=== PATIENT | male | born 1950 | race Caucasian/White ===

== ENCOUNTER → 2017-03-01 | Outpatient (CLI) | payer MEDICARE ==
[2017-03-01 12:38] LABS: ALT 35 U/L (21-72); AST 23 U/L (17-59); Alkaline Phosphatase 97 U/L (38-126); Anion Gap 8 mmol/L; Blood Urea Nitrogen 14 mg/dL (9-20); Calcium 8.9 mg/dL (8.4-10.2); Carbon Dioxide 28 mmol/L (22-30); Chloride 102 mmol/L (98-107); Cholesterol 291 mg/dL (<200); Glucose 92 mg/dL (74-99); HDL Cholesterol 62 mg/dL (40-60); Non-African American GFR(MDRD) >60 (>60 ml/min/1.73 sqM); Potassium 4.4 mmol/L (3.5-5.1); Sodium 138 mmol/L (137-145); Total Bilirubin 0.4 mg/dL (0.2-1.3)
[2017-03-01 12:43] LABS: CH 32.1; CHCM 32.6; HCT 46.2 % (39.0-53.0); HDW 2.36; HGB 15.2 gm/dL (13.0-17.5); MCH 32.4 pg (25.0-35.0); MCHC 32.8 g/dL (31.0-37.0); MCV 98.8 fL (80.0-100.0); Mean Platelet Volume 7.8; RBC 4.68 m/uL (4.30-5.90); RDW 14.6 % (11.5-15.5); WBC 6.7 k/uL (3.8-10.6)
== END | disposition home or self-care (01) ==
LOC: LABWHC1 11:49
PROVIDERS: ATTEND Psychiatry & Neurology Psychiatry
DX: E78.5 Hyperlipidemia, unspecified (principal); E03.9 Hypothyroidism, unspecified
CPT/HCPCS: 36415; 80053; 80061; 84439; 84443; 85027

== ENCOUNTER → 2017-04-27 | Outpatient (CLI) | payer MEDICARE ==
[2017-04-27 18:17] LABS: Non-African American GFR(MDRD) >60 (>60 ml/min/1.73 sqM)
--- NOTE | 2017-04-27 23:19 | MR ---
EXAMINATION TYPE: MR brain wo/w con DATE OF EXAM: 04/27/2017 COMPARISON: 03/28/2015 HISTORY: Abnormal gait TECHNIQUE: Multiplanar, multisequence images of the brain and brainstem is performed without and with IV contras t, utilizing 10 mL intravenous Gadavist . FINDINGS: There is mild cerebral atrophy appropriate for age. There is no mass effect nor midline renetta ft. There is no sign of intracranial hemorrhage. Brainstem is intact. There is mild patchy increased signal in the periventricular white matter and more noticeable around the frontal horns and occipital horns of the lateral ventricles. Total number of foci is approximatel y 20. These measure up to 8 mm. The sella turcica is normal. Cerebellum appears normal. Contrast imag es show no pathologic enhancement. IMPRESSION: There are periventricular white matter signal changes that could relate to demyelinating disease or chronic small vessel ischemia. There is slight progression of the disease compared to last exam. There is no evidence of cortical infarct.
== END | disposition home or self-care (01) ==
LOC: RADMRIMAIN 17:36
PROVIDERS: ATTEND Psychiatry & Neurology Psychiatry
DX: D43.2 Neoplasm of uncertain behavior of brain, unspecified (principal); R26.9 Unspecified abnormalities of gait and mobility
CPT/HCPCS: 82565; 70553; 36415; A9581

== ENCOUNTER → 2017-04-27 | Outpatient (CLI) | payer MEDICARE ==
[2017-04-27 18:17] LABS: ALT 38 U/L (21-72); AST 27 U/L (17-59); Cholesterol 290 mg/dL (<200); HDL Cholesterol 60 mg/dL (40-60)
== END | disposition home or self-care (01) ==
LOC: LAB 17:42
PROVIDERS: ATTEND Nurse Practitioner Adult Health
DX: E78.2 Mixed hyperlipidemia (principal)
CPT/HCPCS: 80061; 84450; 84460

== ENCOUNTER → 2018-02-06 | Outpatient (CLI) | payer MEDICARE ==
[2018-02-06 11:06] LABS: HCT 44.4 % (39.0-53.0); HGB 14.4 gm/dL (13.0-17.5); MCH 30.9 pg (25.0-35.0); MCHC 32.5 g/dL (31.0-37.0); MCV 95.1 fL (80.0-100.0); Mean Platelet Volume 7.6; Platelet Count 193 k/uL (150-450); RBC 4.67 m/uL (4.30-5.90); RDW 13.1 % (11.5-15.5); WBC 6.7 k/uL (3.8-10.6)
[2018-02-06 11:18] LABS: Anion Gap 7 mmol/L; Blood Urea Nitrogen 13 mg/dL (9-20); Carbon Dioxide 25 mmol/L (22-30); Chloride 105 mmol/L (98-107); Glucose 94 mg/dL (74-99); Potassium 4.7 mmol/L (3.5-5.1); Sodium 137 mmol/L (137-145)
== END | disposition home or self-care (01) ==
LOC: LABPAT 10:24
PROVIDERS: ATTEND Internal Medicine Interventional Cardiology
DX: Z01.812 Encounter for preprocedural laboratory examination (principal); I25.10 Atherosclerotic heart disease of native coronary artery without angina pectoris; R07.9 Chest pain, unspecified
CPT/HCPCS: 36415; 80051; 82565; 82947; 84520; 85027

== ENCOUNTER → 2018-02-23 | Day surgery (SDC) | payer MEDICARE ==
[2018-02-16 12:05] VITALS: BMI 33.2
[~2018-02-23] MED LIST: ALPRAZolam 0.25 MG TAB PO PRN; ALPRAZolam 0.5 MG TAB PO PRN; ASPIRIN 325 MG TAB PO STA; ATORVASTATIN 80 MG TAB PO STA; IOPAMIDOL-250 100ML BTL INTRAARTER ONE; IOPAMIDOL-370 125ML BTL INJ ONE; LIDOCAINE 1% INJ 10MG/ML (20 ML MDV) SQ ONE; MIDAZOLAM 2 MG/2 ML VIAL IV ONE; NITROGLYCERIN SL TABS 0.4 MG TAB SUBLINGUAL PRN; RX INFO: IV CONTRAST WAS GIVEN 1 EACH MISC MISCELLANE PRN; SODIUM CHLORIDE 0.9% 1,000 ML IV SCH; SODIUM CHLORIDE 0.9% 1,000 ML in EMPTY BAG 1 BAG IV ONE
[2018-02-23 08:35] VITALS: RESP 18; TEMP 98.7
--- NOTE | 2018-02-23 11:26 | LTR ---
February 23, 2018 Re: Vikash Drew Dear Dr. Nelson: Mr. Vikash Drew was seen in the office recently and he was experiencing chest discomfort, shortness of breath, and bilateral lower extremities intermittent claudication. He underwent a stress test in the office and that showed lateral ischemia. He underwent also an ankle brachial index, LUNA, and that came in to be abnormal. He underwent today a heart catheterization which revealed the occlusion of the bypasses. The aortogram with runoff revealed severe bilateral femoral artery disease. He will be scheduled initially to undergo a PCI of his grayling left circumflex. After that I will schedule the patient to undergo balloon angioplasty of bilateral femoral arteries. I want to thank you for allowing me to participate in his care and please do not hesitate to call if you have any question or concern. Sincerely, MD NAZ Eteinne / RUSH: [id number] /
--- NOTE | 2018-02-23 11:35 | CC ---
CARDIAC CATHETERIZATION REPORT DATE OF SERVICE: 02/23/2018. PERFORMING PHYSICIAN: Alvaro Gregorio MD, Blood Bank Booking Clerk. PROCEDURE PERFORMED: 1. Selective left coronary angiogram. 2. Non-selective right coronary artery angiogram. 3. SVG to left circumflex angiogram. 4. SVG to ramus intermedius angiogram. 5. SVG to diagonal angiogram. 6. FAGAN to LAD angiogram. 7. SVG to RCA angiogram. 8. Left heart catheterization. INDICATION: This is a pleasant 67-year-old gentleman who was experiencing intermittent episodes of chest discomfort as well as exertional dyspnea and underwent myocardial perfusion imaging stress test and that showed lateral ischemia. In view of that, heart catheterization was recommended. The patient does have coronary artery disease and in 2007, he underwent CABG x5 with a FAGAN to LAD, SVG to diagonal, SVG to OM, SVG to ramus intermedius, and SVG to RCA. APPROACH: Right common femoral artery. COMPLICATION: None. LEVEL OF SEDATION: Moderate with sedation length of 20 minutes. PROCEDURE DESCRIPTION: After obtaining an informed consent, the patient was brought to the cardiac labor arbitrator. The right common femoral artery was cannulated using micropuncture technique. The micropuncture wire passed easily, then I placed a 6-Setswana sheath in the right common femoral artery. After that, I did selective left coronary angiogram and non selective right coronary angiogram. After that, I did SVG angiogram as described above. On the SVG, the SVG angiogram was performed using JR4 catheters. Except for the SVG to RCA was performed using multipurpose catheter. The FAGAN to LAD angiogram was performed using a JR4 catheter. So to make sure, I did all SVG angiogram using JR4 catheter, except for the SVG to RCA was performed using multipurpose catheter. After that, I did left heart catheterization using 6-Setswana pigtail catheter and the procedure after that was completed without any complication. SELECTIVE CORONARY ANGIOGRAM: 1. The left main is a moderate caliber vessel with mild disease only distally. It bifurcates into left circumflex and left anterior descending artery. 2. The left circumflex is a large caliber vessel. The proximal circumflex appeared to have mild disease only. The mid circumflex has tubular lesion appeared to be in the range of 80% to 90%. This is just distal to the bifurcation of the first obtuse marginal branch which is a medium caliber vessel with moderate to severe disease in the proximal portion. The distal left circumflex appears to be angiographically normal. 3. The LAD is 100% occluded in the proximal portion. 4. The RCA was not selectively injected, but upon injecting the SVG to RCA, the RCA is occluded by the ostium. CORONARY BYPASSES ANGIOGRAM: 1. The FAGAN to LAD is patent. The LAD distal to the FAGAN anastomosis has mild diffuse disease only. 2. The SVG to diagonal is occluded. 3. The SVG to ramus intermedius is occluded. 4. The SVG to OM is occluded as well. 5. The SVG to RCA is patent. HEMODYNAMICS: The left ventricular end-diastolic pressure was 12 mmHg and no significant gradient was identified across the aortic valve. CONCLUSION: 1. Chest discomfort and shortness of breath in this gentleman with coronary artery disease and status post coronary artery bypass grafting. Nuclear stress test was performed and showed lateral ischemia. 2. Severe triple-vessel coronary artery disease. 3. Patent FAGAN to LAD. 4. Occluded SVG to diagonal. 5. Occluded SVG to ramus intermedius. 6. Occluded SVG to OM. 7. Patent SVG to RCA. POSTPROCEDURE MANAGEMENT: The patient will be scheduled to undergo a PTCA and stenting of the his [place] left circumflex which is a large caliber vessel. MMODL / IJN: [id number] /
--- NOTE | 2018-02-23 11:56 | AN ---
ANGIOGRAPHY REPORT ABDOMINAL AORTOGRAM AND BILATERAL LOWER EXTREMITIES RUNOFF: DATE OF SERVICE: 02/23/2018 PERFORMING PHYSICIAN: Alvaro Gregorio MD, Welfare Project Manager. PROCEDURE PERFORMED: 1. An abdominal aortogram. 2. Bilateral lower extremities runoff. INDICATION: This is a pleasant 67-year-old gentleman with known history of coronary artery disease and prior coronary artery bypass grafting, was experiencing bilateral lower extremities discomfort consistent with intermittent claudication. He underwent an ankle brachial index as an outpatient and that came in to be abnormal and because of that, an abdominal aortogram and bilateral lower extremities runoff was advised. APPROACH: Right common femoral artery. COMPLICATION: None. LEVEL OF SEDATION: Moderate with sedation length of 20 minutes. The patient was brought earlier to undergo a heart catheterization. Please refer to procedure description of the heart catheterization. After the heart catheterization was performed, I did advance a 6-Israeli pigtail catheter to the abdominal aorta at the level of the renal arteries. Then I did an abdominal aortogram and bilateral lower extremities runoff. The catheter was initially placed at the level of the renal arteries and it was pulled into above the bifurcation of the aorta to right and left common iliac arteries. The procedure was completed without any complication. SELECTIVE PERIPHERAL ANGIOGRAM: The aorta has mild disease only. COMMON ILIAC ARTERIES: 1. The right and left common iliac arteries appear to have mild disease only. 2. Internal iliac arteries: The right internal iliac artery is patent. 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 3. External iliac arteries: The right and left external iliac arteries appeared to be angiographically normal. 4. Common femoral arteries: The right common femoral artery appeared to be angiographically normal. The left common femoral artery distally just above the bifurcation to the SFA and profunda has intermediate lesion. 5. Profunda: The right and left profunda are patent. 6. SFA: Right SFA is occluded by the ostium on short segment and reconstitute after that. Then there is another area of chronic total occlusion proximally. The left SFA has tight lesion in the midportion. 7. Popliteal: The right popliteal has intermediate to severe lesion in the midportion and the left popliteal appeared to have mild disease only. 8. Below the knee: The arteries below the knee are poorly off half visualized because of technical issues during the angiogram. CONCLUSION: 1. Mild aortoiliac disease. 2. Intermediate disease involving the distal left common femoral artery. 3. Severe bilateral SFA disease. The right SFA is occluded on short segment in the ostial/proximal area. The left SFA has a tight lesion in the midportion. 4. Intermediate right popliteal disease. POSTPROCEDURE MANAGEMENT: PTCA of the right SFA and subsequently the left SFA as well. MMODL / IJN: [id number] /
[2018-02-23 17:21] VITALS: BP 138/63; PULSE 66
--- NOTE | 2018-02-24 08:49 | IR ---
Fluoroscopy HISTORY: Pain in leg 10.9 minutes fluoroscopy time supplied to the referring clinician. 816 intraoperative C-arm images d ocument the procedure. See dictated report from cardiology.
== END ==
LOC: CATHCVL 07:30
PROVIDERS: ATTEND Internal Medicine Interventional Cardiology
DX: I25.700 Atherosclerosis of coronary artery bypass graft(s), unspecified, with unstable angina pectoris (principal); I25.110 Atherosclerotic heart disease of native coronary artery with unstable angina pectoris; I25.82 Chronic total occlusion of coronary artery; I77.9 Disorder of arteries and arterioles, unspecified; I73.9 Peripheral vascular disease, unspecified; R94.39 Abnormal result of other cardiovascular function study; I10 Essential (primary) hypertension; E78.00 Pure hypercholesterolemia, unspecified; Z79.82 Long term (current) use of aspirin; Z79.899 Other long term (current) drug therapy
CPT/HCPCS: 93459; 75625; 75716; C1769 ×3; C1894 ×2; J2250; J2001; Q9966; Q9967

== ENCOUNTER 2018-03-29 06:14 | Day surgery (SDC) | payer MEDICARE ==
[~2018-03-29 06:14] MED LIST changes: -IOPAMIDOL-250 100ML BTL INTRAARTER ONE; -IOPAMIDOL-370 125ML BTL INJ ONE; -LIDOCAINE 1% INJ 10MG/ML (20 ML MDV) SQ ONE; -MIDAZOLAM 2 MG/2 ML VIAL IV ONE; -NITROGLYCERIN SL TABS 0.4 MG TAB SUBLINGUAL PRN; -RX INFO: IV CONTRAST WAS GIVEN 1 EACH MISC MISCELLANE PRN; -SODIUM CHLORIDE 0.9% 1,000 ML IV SCH
[2018-03-29] MEDS: MIDAZOLAM 2 MG/2 ML VIAL IVP ONE ×4 (08:10→12:06)
[2018-03-29] MEDS ORDERED: LIDOCAINE 1% INJ 10MG/ML (20 ML MDV) SQ ONE (08:15)
[2018-03-29] MEDS ORDERED: LIDOCAINE 1% (PF) 10MG/ML VIAL SQ ONE (08:15)
[2018-03-29] MEDS ORDERED: BIVALIRUDIN BOLUS 250 MG/50 ML IV ONE (08:18)
[2018-03-29] MEDS ORDERED: BIVALIRUDIN 250 MG in SODIUM CHLORIDE 0.9% 40 ML IV ONE (08:19)
[2018-03-29] MEDS: NITROGLYCERIN 1000MCG/10ML SYRINGE INTRACORON ONE ×2 (08:37→08:44)
[2018-03-29] MEDS: fentaNYL (PF) 50 MCG/ML 2 ML AMP IVP ONE ×4 (08:38→11:34)
[2018-03-29] MEDS ORDERED: CLOPIDOGREL 75 MG TAB PO ONE (08:47)
[2018-03-29] MEDS ORDERED: IOPAMIDOL-370 125ML BTL INJ ONE (08:51)
[2018-03-29] MEDS ORDERED: BIVALIRUDIN 250 MG in SODIUM CHLORIDE 0.9% 50 ML IV ONE ×2 (08:57→10:22)
[2018-03-29] MEDS ORDERED: HEPARIN SODIUM 1,000 UN/ML (10ML VL) IV ONE (11:49)
[2018-03-29] MEDS ORDERED: ASPIRIN 325 MG TAB PO PRN (12:35)
[2018-03-29] MEDS ORDERED: IOPAMIDOL-250 100ML BTL INTRAARTER ONE (12:39)
[2018-03-29] MEDS ORDERED: ATROPINE SULFATE 0.1 MG/ML 10ML SYRINGE IV PRN (12:39)
[2018-03-29] MEDS ORDERED: ZOLPIDEM 5 MG TAB PO PRN (12:39)
[2018-03-29] MEDS ORDERED: RX INFO: IV CONTRAST WAS GIVEN 1 EACH MISC MISCELLANE PRN (12:39)
[2018-03-29] MEDS ORDERED: MAG HYDROX/AL HYDROX/SIMETH 30 ML CUP PO PRN (12:39)
[2018-03-29] MEDS ORDERED: NITROGLYCERIN SL TABS 0.4 MG TAB SUBLINGUAL PRN (12:39)
[2018-03-29] MEDS ORDERED: SODIUM CHLORIDE 0.9% 1,000 ML IV SCH (12:45)
[2018-03-29] MEDS ORDERED: hydrALAZINE HCL 20 MG/ML 1 ML VIAL ONE (13:42)
[2018-03-29] MEDS ORDERED: ENALAPRILAT 1.25 MG/ML 1 ML VIAL ONE (13:42)
--- NOTE | 2018-03-29 14:20 | IR ---
Fluoroscopy HISTORY: Pain in leg 57.1 minutes fluoroscopy time supplied to the referring clinician. 1180 intraoperative C-arm images document the procedure. See dictated report from cardiology.
--- NOTE | 2018-03-29 16:46 | PTCA ---
PERCUTANEOUSTRANS CORORONARY ANGIOGRAPHY DATE OF SERVICE: March 29, 2018 PERFORMING PHYSICIAN: Alvaro Gregorio MD. PROCEDURE PERFORMED: Successful stenting of the mid left circumflex using 2.0 x 15 and 2.0 x 12 Ezequ[place] drug- eluting stent with an excellent angiographic result. INDICATION: This is a pleasant 67-year-old gentleman who has known history of coronary artery disease and prior coronary artery bypass grafting who was experiencing chest discomfort and underwent a heart catheterization a few weeks ago and that showed the occlusion of the graft to the left circumflex. He was brought today to undergo stenting of the left circumflex. APPROACH: Right common femoral artery. COMPLICATION: None. LEVEL OF SEDATION: Moderate with sedation length of 47 minutes. PROCEDURE DESCRIPTION: After obtaining an informed consent, the patient was brought to the cardiac high density press laborer. The right common femoral artery was cannulated using micropuncture technique. Under ultrasound guidance, the micropuncture wire passed easily. Then I placed a 6-Cambodian sheath 11 cm in the right common femoral artery. After that, I did start anticoagulation using Angiomax. Angiomax was started with a bolus and drip per protocol. Subsequently, I did engage the left main using an XP35 guide. The left circumflex was wired using a Whisper wire as a working wire and a run-through wire as a robert wire to straighten the left circumflex because the takeoff of the left circumflex from the left main was quite angulated and tortuous. Subsequently, I did balloon angioplasty of the left circumflex using 2.5 x 12 mm balloon before I deployed 2 [place] drug-eluting stents. The first [place] drug-eluting stent was 2.0 x 15 mm, which was positioned under fluoroscopy guidance and the second one was 2.0 x 12 mm with overlap about 2 mm between the 2 stents. The following angiogram showed excellent angiographic results and the procedure was completed without any complication. The following angiogram showed an excellent angiographic result with reduction of stenosis from 80% to 0% and without any dissection and with TOBIN-3 flow. At that point, the procedure was completed without any complication. POSTPROCEDURE MANAGEMENT: 1. Dual anti-platelet therapy. 2. Risk factors modifications. 3. Follow up with the patient. MMODL / IJN: [id number] /
--- NOTE | 2018-03-29 19:10 | LTR ---
March 29, [address] Nelson: Mr. Vikash Drew underwent today successful stenting of the left circumflex as well as successful stenting of the left superficial femoral artery with good angiographic results and without any complication. Thank you for allowing us to participate in his care and please do not hesitate to call if you have any question or concern. MMODL / IJN: [id number] /
--- NOTE | 2018-03-29 20:19 | AN ---
ANGIOGRAPHY REPORT DATE OF SERVICE: 03/29/2018 PERFORMING PHYSICIAN: Alvaro Gregorio MD, artillery maintenance supervisor. PROCEDURES PERFORMED: 1. Selective left [id number] angiogram. 2. Selective left popliteal/SFA angiogram. 3. Selective left common femoral artery angiogram. 4. Selective left common iliac artery and external iliac artery angiogram. 5. Selective right common femoral artery angiogram. 6. Balloon angioplasty of the right common femoral artery using 4 x 40 mm AngioSculpt balloon. 7. Atherectomy of the right superficial femoral artery using the TurboHawk device with extraction of significant amount of plaque. 8. Balloon angioplasty of the left superficial femoral artery using a 6 x 60 mm drug- coated balloon with reasonable angiographic results and with bvl-rmqj-wzasiwoh dissection but iatrogenic fistula. 9. Successful stenting of the left SFA using a 7.0 x 80 mm Zilver PTX drug-coated stent with excellent angiographic results. INDICATION: This is a pleasant 67-year-old gentleman who follows with Dr. Jean-Pierre Nelson in the office as an outpatient who was experiencing bilateral lower extremity intermittent claudication and underwent a peripheral angiogram that revealed severe bilateral SFA disease. He was brought today to undergo an intervention of his heart, where he was brought to undergo stenting of the left circumflex and at the same time intervention of the left SFA. APPROACH: Right common femoral artery. COMPLICATIONS: None. LEVEL OF SEDATION: Moderate with sedation length of 85 minutes. PROCEDURE DESCRIPTION: Please refer to the access description and the report from the stenting of the left circumflex which was performed earlier today. After intervention on the left circumflex was performed successfully, I decided to pursue an intervention on the left SFA. I selected the left profunda using an .035 Glidewire. The bifurcation of the aorta was quite angulated and the aortoiliac was quite calcified. Because of that, I decided to exchange my .035 Glidewire for a stiffer wire for the sheath to go up and over. I had a hard time going up and over with the sheath. Finally I was able to get the .035 [place] Advantage to the profunda, then exchanged the .035 [place] Advantage over CXI catheter for a stiffer wire, which was the Amplatzer wire. With that, I was able to get a 6-Citizen [place] 55 cm Mateus sheath all the way to the left common femoral artery. I used also a multi-purpose catheter to help me advance the sheath down. After that I did selective left uieqb-vyt-qpuf angiogram, selective left popliteal/SFA angiogram, and selective left common femoral artery/profunda angiogram as well. At that point I decided to go ahead and do atherectomy of the left SFA using the TurboHawk device, but the device would not cross the lesion in the left common femoral artery because the lesion was quite concerning and calcified and angulated. Because of that, I did balloon angioplasty of the left common femoral artery and ostial left SFA using a 4 0 mm AngioSculpt balloon. After that I was able to get the TurboHawk device all the way to the mid SFA, where I did atherectomy with extraction of significant amount of plaque. After that I did balloon angioplasty using a 6 x 60 mm drug-coated balloon where the balloon was inflated for 3 minutes. After that, the following angiogram showed good angiographic results, but there was iatrogenic fistula as well as possible dissection, and because of that I decided to cover that with a stent. I did deploy a 7 x 80 mm drug-coated stent, which was Zilver PTX, where the stent was positioned under fluoroscopy guidance and deployed under fluoroscopy guidance as well. I post dilated the stent using 6 mm balloon. The following angiogram showed excellent angiographic results. At that point the procedure was completed without any complication. Before I pulled the sheath to the right side, I did selective left iliac angiogram and selective left external iliac angiogram to make sure there was no lesion obstructing the sheath from going up and over. The angiogram did not show any evidence of severe disease in the left common iliac or left external iliac. At that point the procedure was completed without any complication. I exchanged my 55 cm 6-[place]izen [place] sheath for an 11 cm 6-[place]izen [place] sheath using an .035 stiff Glidewire. I finally did selective right common femoral artery angiogram. The procedure was completed without any complication. POST-PROCEDURE MANAGEMENT: 1. Dual anti-platelet therapy. 2. Risk factor modifications. 3. Follow up with the patient. MMRYAN / RUSH: [id number] /
[2018-03-29] MEDS: busPIRone HCl 5 MG TAB PO SCH (20:23)
[2018-03-29] MEDS: METOPROLOL TARTRATE 25 MG TAB PO SCH (20:24)
[2018-03-29] MEDS ORDERED: EZETIMIBE 10 MG TAB PO SCH (21:00)
[2018-03-29] MEDS ORDERED: ATORVASTATIN 80 MG TAB PO SCH (21:00)
[2018-03-29] MEDS ORDERED: CITALOPRAM HYDROBROMIDE 10 MG TAB PO SCH (21:00)
[2018-03-30 06:56] LABS: Basophils % (A) 0 %; Eosinophils # (A) 0.1 k/uL (0-0.7); Eosinophils % (A) 2 %; HCT 38.3 % (39.0-53.0); HGB 12.1 gm/dL (13.0-17.5); Lymphocytes % (A) 14 %; MCH 30.8 pg (25.0-35.0); MCHC 31.5 g/dL (31.0-37.0); MCV 97.6 fL (80.0-100.0); Mean Platelet Volume 7.8; Monocytes # (A) 0.4 k/uL (0-1.0); Monocytes % (A) 5 %; Neutrophils # (A) 5.7 k/uL (1.3-7.7); Neutrophils % (A) 76 %; Platelet Count 147 k/uL (150-450); RBC 3.92 m/uL (4.30-5.90); RDW 13.6 % (11.5-15.5); WBC 7.5 k/uL (3.8-10.6)
[2018-03-30 07:00] LABS: Anion Gap 4 mmol/L; Blood Urea Nitrogen 12 mg/dL (9-20); Calcium 8.3 mg/dL (8.4-10.2); Carbon Dioxide 28 mmol/L (22-30); Chloride 105 mmol/L (98-107); Glucose 92 mg/dL (74-99); Potassium 4.5 mmol/L (3.5-5.1); Sodium 137 mmol/L (137-145)
[2018-03-30] MEDS: METOPROLOL TARTRATE 25 MG TAB PO SCH (08:15)
[2018-03-30] MEDS: busPIRone HCl 5 MG TAB PO SCH (08:15)
[2018-03-30 08:20] VITALS: BP 104/61; PULSE 80; RESP 20; TEMP 98.8
[2018-03-30] MEDS ORDERED: VENLAFAXINE HCL ER 150 MG CAP PO SCH (09:00)
--- NOTE | 2018-03-30 10:44 | DS ---
DISCHARGE SUMMARY ADMISSION DATE: March 29, 2018. DISCHARGE DATE: March 30, 2018 BRIEF HISTORY: This is a pleasant 67-year-old gentleman who I follow in the office as an outpatient who was experiencing recently symptoms of chest discomfort as well as bilateral lower extremities intermittent claudication. He underwent a heart catheterization and peripheral angiogram about 4 weeks ago. The heart catheterization showed critical disease involving unprotected left circumflex because of the SVG graft to the circumflex was occluded. Beside that, the peripheral angiogram revealed severe bilateral SFA disease. The patient was admitted to the hospital yesterday and underwent stenting of the left circumflex with an excellent angiographic result as well as balloon angioplasty of the left superficial femoral artery. The procedure was performed from the right groin. The right groin is soft and nontender and without any bruises. The patient is going to be discharged home on dual anti-platelet therapy and I will follow up with the patient next week in the office. MMRYAN / ISAURAN: [id number] /
[2018-03-30 11:09] VITALS: BMI 34.2
[2018-03-30] MEDS ORDERED: CYANOCOBALAMIN 500 MCG TAB PO SCH (12:00)
[2018-03-30] MEDS ORDERED: CLOPIDOGREL 75 MG TAB PO SCH (12:00)
== END 2018-03-30 11:38 | disposition home or self-care (01) ==
LOC: CATHCVL 06:14 → 6SEL 12:27 → CATHCVL 03-30 11:38
PROVIDERS: ATTEND Internal Medicine Interventional Cardiology
DX: I25.10 Atherosclerotic heart disease of native coronary artery without angina pectoris (principal); I70.213 Atherosclerosis of native arteries of extremities with intermittent claudication, bilateral legs; Z95.1 Presence of aortocoronary bypass graft; I10 Essential (primary) hypertension; E78.00 Pure hypercholesterolemia, unspecified; I65.23 Occlusion and stenosis of bilateral carotid arteries; Z79.82 Long term (current) use of aspirin; Z79.899 Other long term (current) drug therapy
CPT/HCPCS: 37227; 80048; 85025; C9600; C1769 ×9; C1894 ×3; C1725 ×3; C1887 ×2; C1714; C2623; C1874 ×2; J2250; J0360; J2001; J3010; J1644; J0583; Q9966; Q9967; 37225

== ENCOUNTER → 2018-04-18 | Outpatient (CLI) | payer MEDICARE ==
[2018-04-18 16:28] LABS: Basophils # (A) 0.1 k/uL (0-0.2); Basophils % (A) 1 %; Eosinophils # (A) 0.2 k/uL (0-0.7); Eosinophils % (A) 3 %; HCT 43.6 % (39.0-53.0); HGB 14.2 gm/dL (13.0-17.5); Lymphocytes # (A) 1.4 k/uL (1.0-4.8); Lymphocytes % (A) 18 %; MCH 31.4 pg (25.0-35.0); MCHC 32.6 g/dL (31.0-37.0); MCV 96.3 fL (80.0-100.0); Mean Platelet Volume 7.3; Monocytes # (A) 0.4 k/uL (0-1.0); Monocytes % (A) 5 %; Neutrophils # (A) 5.7 k/uL (1.3-7.7); Neutrophils % (A) 72 %; Platelet Count 255 k/uL (150-450); RBC 4.53 m/uL (4.30-5.90); RDW 13.1 % (11.5-15.5); WBC 7.9 k/uL (3.8-10.6)
[2018-04-18 16:36] LABS: Potassium 4.6 mmol/L (3.5-5.1)
== END | disposition home or self-care (01) ==
LOC: LABPAT 15:49
PROVIDERS: ATTEND Surgery
DX: Z01.812 Encounter for preprocedural laboratory examination (principal); I65.22 Occlusion and stenosis of left carotid artery
CPT/HCPCS: 36415; 80051; 82565; 84520; 85025

== ENCOUNTER 2018-04-25 08:13 | Inpatient (IN) | payer MEDICARE ==
[~2018-04-25 08:13] MED LIST changes: -ALPRAZolam 0.25 MG TAB PO PRN; -ALPRAZolam 0.5 MG TAB PO PRN; -ASPIRIN 325 MG TAB PO STA; -ATORVASTATIN 80 MG TAB PO STA; +HYDROmorphone 1 MG/ML 1 ML SYRINGE IVP PRN; +ONDANSETRON 4 MG/2 ML VIAL IVP ONE; -SODIUM CHLORIDE 0.9% 1,000 ML in EMPTY BAG 1 BAG IV ONE; +ceFAZolin IN SWFI 2 GM/20 ML SYRINGE IVP ONE; +fentaNYL (PF) 50 MCG/ML 2 ML AMP IV PRN
[2018-04-25] MEDS ORDERED: LIDOCAINE 1% 20 ML VIAL (10MG/ML) FOR IV START INTRADERMA ONE (08:44)
[2018-04-25] MEDS: LACTATED RINGERS 1,000 ML IV SCH ×2 (08:44→17:20)
[2018-04-25] MEDS ORDERED: SUCCINYLCHOLINE CHLORIDE 100 MG/5 ML SYR IV ONE (11:01)
[2018-04-25] MEDS ORDERED: MIDAZOLAM 2 MG/2 ML VIAL ONE (11:01)
[2018-04-25] MEDS ORDERED: HEPARIN SODIUM,PORCINE 5,000 UNIT/ML 1 ML VIAL ONE (11:01)
[2018-04-25] MEDS ORDERED: PHENYLEPHRINE-0.9% NACL SYG 1 MG/10 ML SYRINGE ONE (11:01)
[2018-04-25] MEDS ORDERED: PROTAMINE SULFATE 10 MG/ML 5 ML VIAL IV ONE (11:01)
[2018-04-25] MEDS ORDERED: LIDOCAINE 1% INJ 10MG/ML (20 ML MDV) ONE (11:01)
[2018-04-25] MEDS ORDERED: NEOSTIGMINE 1 MG/ML 10 ML VIAL ONE (11:01)
[2018-04-25] MEDS ORDERED: GLYCOPYRROLATE 0.2 MG/ML 2 ML VIAL ONE (11:01)
[2018-04-25] MEDS ORDERED: ROCURONIUM BROMIDE 10 MG/ML 10 ML VIAL IV ONE (11:01)
[2018-04-25] MEDS ORDERED: PROPOFOL 10 MG/ML 20 ML VIAL IV ONE (11:01)
[2018-04-25] MEDS ORDERED: fentaNYL (PF) 50 MCG/ML 2 ML AMP ONE (11:01)
[2018-04-25] MEDS ORDERED: LACTATED RINGERS 1,000 ML IV ONE ×2 (12:19)
[2018-04-25] MEDS ORDERED: THROMBIN (BOVINE) 5,000 UNIT VIAL TOPICAL ONE (12:52)
[2018-04-25] MEDS ORDERED: GELATIN SPONGE,ABSORB (LARGE) 1 EACH SPONGE TOPICAL ONE (12:52)
[2018-04-25] MEDS ORDERED: HYDROcodone/APAP 5-325MG 1 EACH TAB PO PRN (13:16)
[2018-04-25] MEDS ORDERED: MORPHINE SULFATE 2 MG/ML SYRINGE IVP PRN (13:16)
[2018-04-25 17:04] VITALS: BMI 33.5
[2018-04-25] MEDS: SODIUM CHLORIDE 0.9% 1,000 ML IV SCH (17:20)
[2018-04-25 18:11] VITALS: RESP 18
--- NOTE | 2018-04-25 18:13 | P.OP ---
Date of Procedure: 04/25/18 Preoperative Diagnosis: Left lower extremity severe disabling claudication. 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 Postoperative Diagnosis: Same Procedure(s) Performed: Left common femoral artery endarterectomy with patch angioplasty Implants: Bovine pericardial patch 1 x 6 cm Anesthesia: PETE Surgeon: Adelfo Stephen Estimated Blood Loss (ml): 300 Pathology: other (Femoral plaque) Condition: stable Disposition: PACU Indications for Procedure: 67-year-old gentleman who originally was seen for bilateral lower extremity claudication. He underwent angiogram with intervention of his iliacs and SFA with balloon angioplasty and passed stenting. Upon this recently aortogram it was noted that his left common femoral artery showed 90% stenosis with decreased flow through the superficial femoral and deep vessel. He presents to the office secondary to worsening left lower extremity pain with ambulation as well as at rest. He states he is unable to ambulate farther than 100 feet without significant pain and needing to stop. He denies any fevers, chills, chest pain or shortness of breath. He presents for left common femoral artery endarterectomy. Operative Findings: Dense calcified plaque extending from the common femoral artery up to the external iliac artery as well as to the superficial femoral and deep femoral artery. Brisk pulsatile blood flow was noted from the external carotid artery as well as brisk backbleeding from the profundus. There is good backbleeding from the superficial femoral artery as well. Description of Procedure: After written informed consent was obtained the patient all risks benefits competitions were described the patient is brought to the operative suite and laid in a supine position. The area of the abdomen and groin was prepped and draped in usual sterile fashion after appropriate anesthetic was performed per the anesthesiologist. A timeout was performed in normal fashion antibiotics were administered prior to incision. An oblique incision was then created overlying the left common femoral artery and dissection was carried down to the femoral fascia. Upon dissection crossing veins were encountered and these were suture ligated in normal fashion. Further dissection was carried down to the common femoral artery which was encountered. This artery was extremely dense and hardened with calcification. Dissection was then carried proximally and distally with control of the common femoral, superficial femoral, and deep femoral arteries with vessel loops. Once controlled patient was administered heparin and followed with serial ACTs for appropriate heparinization. The vessels were then clamped and arteriotomy was created with 11 blade scalpel and extended with Pott Curry scissors. Upon dissection into the femoral artery was noted that the plaque was extremely calcified as well as a posterior tongue extended from the external iliac artery down to the superficial femoral artery. Endarterectomy was then performed throughout the vessels with an eversion technique for the deep femoral artery. Dense plaque was removed and sent off for pathology. Attempt was placed at trying to feather the plaque at the superficial femoral artery this was unable to be obtained and therefore 6-0 Prolene suture was utilized to tack down the plaque at the distal aspect of the superficial femoral artery takeoff. All free debris was removed after copiously irrigation with heparinized saline was performed. Good brisk backbleeding was noted from the superficial femoral, and deep profundus prior to placing of the patch. Patch angioplasty was then performed with a 1 x 6 cm bovine pericardial patch with 5-0 Prolene suture in a running fashion. Prior to last sutures being placed distal control was released revealing good backbleeding from the superficial femoral and profundus artery. The superficial femoral artery was once again clamped with a DeBakey and proximal control was released allowing pulsatile blood flow through the patch removing any free debris. This area was also copiously irrigated with heparinized saline prior to releasing of the control. All free debris was then directed into the deep system after final suture was placed and then the superficial femoral artery was released. There is good pulsatile blood flow within the patch as well as the profundus and superficial femoral artery at the conclusion of the anastomosis. This was checked once again with Doppler which demonstrated multiphasic signal in the profundus as well as the superficial femoral artery. Hemostasis was then assured with Gelfoam and thrombin as well as Surgicel. Once hemostatic a 10-[place]ov[place] Jovanni drain was then placed and secured in normal fashion with nylon suture. The area was copiously irrigated with antibiotic solution the incision was then closed in a multilayer fashion. Skin was cleansed and Provine a wound VAC dressing was placed. Patient tolerated the procedure well and was sent to PACU for recovery. He had palpable DP and PT pulses at the conclusion of the procedure.
[2018-04-25] MEDS: METOPROLOL TARTRATE 25 MG TAB PO SCH (20:39)
[2018-04-25] MEDS: busPIRone HCl 5 MG TAB PO SCH (20:39)
[2018-04-25] MEDS ORDERED: EZETIMIBE 10 MG TAB PO SCH (21:00)
[2018-04-25] MEDS ORDERED: ATORVASTATIN 80 MG TAB PO SCH (21:00)
[2018-04-26] MEDS ORDERED: ACETAMINOPHEN TAB 325 MG TAB PO STA (00:57)
[2018-04-26] MEDS: SODIUM CHLORIDE 0.9% 1,000 ML IV SCH ×2 (03:15→12:00)
[2018-04-26 07:31] LABS: HCT 34.8 % (39.0-53.0); HGB 11.4 gm/dL (13.0-17.5); MCH 31.5 pg (25.0-35.0); MCHC 32.8 g/dL (31.0-37.0); MCV 96.1 fL (80.0-100.0); Mean Platelet Volume 7.3; Platelet Count 173 k/uL (150-450); RBC 3.62 m/uL (4.30-5.90); RDW 13.3 % (11.5-15.5); WBC 7.6 k/uL (3.8-10.6)
[2018-04-26 07:41] LABS: Anion Gap 5 mmol/L; Blood Urea Nitrogen 16 mg/dL (9-20); Calcium 8.3 mg/dL (8.4-10.2); Carbon Dioxide 29 mmol/L (22-30); Chloride 104 mmol/L (98-107); Glucose 89 mg/dL (74-99); Potassium 4.8 mmol/L (3.5-5.1); Sodium 138 mmol/L (137-145)
[2018-04-26] MEDS: busPIRone HCl 5 MG TAB PO SCH (07:55)
[2018-04-26] MEDS: METOPROLOL TARTRATE 25 MG TAB PO SCH (07:55)
[2018-04-26] MEDS: LACTATED RINGERS 1,000 ML IV SCH (07:58)
[2018-04-26] MEDS ORDERED: DOCUSATE 100 MG CAP PO SCH (09:00)
[2018-04-26] MEDS ORDERED: VENLAFAXINE HCL ER 150 MG CAP PO SCH (09:00)
[2018-04-26] MEDS ORDERED: ASPIRIN 81 MG PO SCH (09:00)
[2018-04-26] MEDS ORDERED: CYANOCOBALAMIN 500 MCG TAB PO SCH (09:00)
[2018-04-26] MEDS ORDERED: CLOPIDOGREL 75 MG TAB PO SCH (09:00)
[2018-04-26 11:56] VITALS: BP 130/72; PULSE 61; TEMP 97.9
[2018-04-26] MEDS ORDERED: MORPHINE ORAL SOLN 10 MG/5 ML CUP PO PRN (12:45)
--- NOTE | 2018-04-26 14:50 | P.CONS ---
History of Present Illness - Reason for Consult Consult date: 04/26/18 Medical management - History of Present Illness This is a 67-year-old male patient of Dr. Uri Nelson with past medical history for coronary artery disease status post stent and CABG in 2007, hyperlipidemia, severe peripheral artery disease. Patient recently underwent angiogram with intervention of his iliacs and S FA with balloon angioplasty and stenting. Recent aortogram found left common femoral artery showed 90% stenosis and decreased flow through the superficial femoral and deep vessel. Patient then followed with Dr. Stephen as he was unable to ambulate more than 100 feet and needed to rest frequently. He was brought into the hospital by Dr. Stephen and underwent left common femoral artery endarterectomy and patch angioplasty. Patient's vital signs have been stable and his blood pressures but on the lower side but stable. He has been afebrile. He has a wound VAC and KODY drain in place. Patient is to increase activity today. He has had no arrhythmias on cardiac technician. No chest pain or dizziness. Patient denies any history of diabetes. He does not use a cane or walker for ambulation. Review of Systems All systems: negative Constitutional: Denies chills, Denies fever, Denies weight loss Eyes: denies blurred vision, denies pain Ears, nose, mouth and throat: Denies headache, Denies sore throat Cardiovascular: Denies chest pain, Denies lightheadedness, Denies palpitations, Denies shortness of breath, Denies syncope Respiratory: Denies cough, Denies cough with sputum, Denies dyspnea, Denies excessive sputum, Denies hemoptysis, Denies home oxygen, Denies wheezing Gastrointestinal: Denies abdominal pain, Denies diarrhea, Denies nausea, Denies vomiting Genitourinary: Denies dysuria Musculoskeletal: Denies frequent falls, Denies gait dysfunction, Denies myalgias Integumentary: Denies pruritus, Denies rash Neurological: Denies numbness, Denies weakness Psychiatric: Denies anxiety, Denies depression Endocrine: Denies fatigue, Denies weight change Past Medical History Past Medical History: Coronary Artery Disease (CAD), Hyperlipidemia, Osteoarthritis (OA), Vascular Disorder Additional Past Medical History / Comment(s): heart stent 03/29/18 and rt leg stent 03/29/18 History of Any Multi-Drug Resistant Organisms: None Reported Past Surgical History: Back Surgery, Coronary Bypass/CABG, Heart Catheterization , Heart Catheterization With Stent, Tonsillectomy Additional Past Surgical History / Comment(s): BRAIN SURGERY, LEFT HIP- SCREWS, HIATAL HERNIA SURGERY, STOMACH SURGERY , recent cardiac cath. 02-23-18, left common femoral artery endarterectomy and patch angioplasty on 04/25/2018 Past Anesthesia/Blood Transfusion Reactions: No Reported Reaction Date of Last Stent Placement:: 03/29/18 Smoking Status: Former smoker Additional Past Alcohol Use History / Comment(s): She was a smoker of half a pack per day for 19 years and quit in 1986. He denies any illicit drug use. - Past Family History Mother Family Medical History: Cancer Additional Family Medical History / Comment(s): Mother at age 45 from stomach cancer. Father Additional Family Medical History / Comment(s): Father at age 62 from consultations from alcohol with history of coronary artery disease. Patient has 2 brothers with no major medical problems. Patient does not have any sisters. Patient has one son with no major medical problems. Medications and Allergies Home Medications Medication Instructions Recorded Confirmed Type Ezetimibe [Zetia] 10 mg PO HS 02/16/18 04/26/18 History Metoprolol Tartrate 25 mg PO BID 02/16/18 04/26/18 History Venlafaxine HCl ER [Effexor XR] 150 mg PO DAILY 02/16/18 04/26/18 History busPIRone HCL 15 mg PO BID 02/16/18 04/26/18 History Aspirin [Adult Low Dose Aspirin EC] 81 mg PO DAILY #30 tablet. 03/30/18 Rx Atorvastatin [Lipitor] 80 mg PO HS #90 tab 03/30/18 04/26/18 Rx Clopidogrel [Plavix] 75 mg PO DAILY #90 tab 03/30/18 04/26/18 Rx Cyanocobalamin (Vitamin B-12) 1,000 mcg PO DAILY 04/26/18 04/26/18 History [Vitamin B-12] Allergies Allergy/AdvReac Type Severity Reaction Status Date / Time No Known Allergies Allergy Verified 04/26/18 07:48 Physical Exam Vitals: Vital Signs Temp Pulse Pulse Resp BP BP Pulse Ox 04/26/18 08:00 98.7 F 69 18 98/55 94 L 04/26/18 04:00 98.2 F 66 18 142/65 93 L 04/26/18 00:00 99 F 68 18 131/55 93 L 04/25/18 20:00 97.8 F 74 18 133/63 94 L 04/25/18 16:00 97.5 F L 68 18 138/68 97 04/25/18 15:45 66 16 113/55 96 04/25/18 15:30 64 16 115/56 97 04/25/18 15:15 59 L 16 129/61 97 04/25/18 15:00 62 16 118/59 98 04/25/18 14:45 62 16 123/63 89 L 04/25/18 14:30 64 16 132/66 98 04/25/18 14:15 63 16 129/69 99 04/25/18 14:00 65 16 118/59 99 04/25/18 13:45 70 16 121/64 98 04/25/18 13:35 98.0 F 68 14 114/68 96 Intake and Output 04/25/18 04/26/18 04/26/18 22:59 06:59 14:59 Intake Total 100 500 Output Total 300 1495 Balance -200 -995 Intake: IV 100 Intake, IV Titration 500 Amount Sodium Chloride 0.9% 1, 500 000 ml @ 80 mls/hr IV . [id number] [facility] Rx#:[id number] Output: Drainage 20 Left Groin 20 Urine 300 1475 Other: Voiding Method Indwelling Catheter Indwelling Catheter Weight 103 kg 105.5 kg Gen: This is a 67-year-old male. He is seen up in bed and appears to be comfortable. HEENT: Head is atraumatic, normocephalic. Pupils equal, round. Sclerae is anicteric. NECK: Supple. No JVD. No lymphadenopathy. No thyromegaly. LUNGS: Clear to auscultation. No wheezes or rhonchi. No intercostal retractions. HEART: Regular rate and rhythm. No murmur. ABDOMEN: Soft. Bowel sounds are present. No masses. No tenderness. EXTREMITIES: No pedal edema. No calf tenderness. Patient has a wound VAC and KODY drain in place to the left groin. NEUROLOGICAL: Patient is awake, alert and oriented x3. Cranial nerves 2 through 12 are grossly intact. Results CBC & Chem 7: 04/26/18 07:06 04/26/18 07:06 Labs: Abnormal Lab Results - Last 24 Hours (Table) 04/26/18 04/26/18 Range/Units 07:06 07:06 RBC 3.62 L (4.30-5.90) m/uL Hgb 11.4 L (13.0-17.5) gm/dL Hct 34.8 L (39.0-53.0) % Calcium 8.3 L (8.4-10.2) mg/dL Assessment and Plan Plan: 1. Peripheral arterial occlusive disease status post left common femoral artery endarterectomy and patch angioplasty. A shunt has wound VAC and KODY drain in place. Continue [place] for pain control. Continue Lipitor, Plavix and aspirin. 2. History of CAD, stable, s/p CABG and stents in the past. Continue aspirin, Plavix, Lopressor. 3. Hyperlipidemia. Continue statin. 4. Remote history of tobacco use. 5. Recurrent depression. Continue Effexor 150 mg daily and BuSpar 50 mg twice daily. Discharge plan: most likely return home Impression and plan of care have been directed as dictated by the signing physician. Chen Kam nurse practitioner acting as scribe for signing physician.
--- NOTE | 2018-04-26 20:07 | P.DS ---
Providers Date of admission: 04/25/18 08:13 Expected date of discharge: 04/26/18 Attending physician: Adelfo Stephen DO Consults: 04/25/18 13:20 Consult Physician Routine Consulting Provider: Uri Nelson Consult Reason/Comments: medical management Do you want consulting provider notified?: Yes [facility] Course: 67 year old male had left femoral artery endarterectomy without complications. Admitted to hospital for pain control and monitoring. Did well over night, pain was controlled, ambulating and tolerated a diet. He was discharged home the following day in stable condition. Procedures: left femoral artery endarterectomy Patient Condition at Discharge: Stable Plan - Discharge Summary Discharge Rx Participant: Yes New Discharge Prescriptions: No Action RX: busPIRone HCL 15 mg PO BID RX: Ezetimibe [Zetia] 10 mg PO HS RX: Venlafaxine HCl ER [Effexor XR] 150 mg PO DAILY RX: Metoprolol Tartrate 25 mg PO BID RX: Atorvastatin [Lipitor] 80 mg PO HS #90 tab RX: Clopidogrel [Plavix] 75 mg PO DAILY #90 tab Aspirin [Adult Low Dose Aspirin EC] 81 mg PO DAILY #30 tablet. Cyanocobalamin (Vitamin B-12) [Vitamin B-12] 1,000 mcg PO DAILY Discharge Medication List RX: Ezetimibe [Zetia] 10 mg PO HS 02/16/18 [History] RX: Metoprolol Tartrate 25 mg PO BID 02/16/18 [History] RX: Venlafaxine HCl ER [Effexor XR] 150 mg PO DAILY 02/16/18 [History] RX: busPIRone HCL 15 mg PO BID 02/16/18 [History] Aspirin [Adult Low Dose Aspirin EC] 81 mg PO DAILY #30 tablet. 03/30/18 [Rx] RX: Atorvastatin [Lipitor] 80 mg PO HS #90 tab 03/30/18 [Rx] RX: Clopidogrel [Plavix] 75 mg PO DAILY #90 tab 03/30/18 [Rx] Cyanocobalamin (Vitamin B-12) [Vitamin B-12] 1,000 mcg PO DAILY 04/26/18 [ History] Follow up Appointment(s)/Referral(s): Adelfo Stephen DO [STAFF PHYSICIAN] - 10/16/18 2:00 pm Patient Instructions/Handouts: Heart Healthy Diet (DC), Preventing Infections ( GEN), Peripheral Vascular Disease (DC) Discharge Disposition: HOME SELF-CARE
== END 2018-04-26 15:47 | disposition home or self-care (01) | DRG 254 ==
LOC: 2ORMAIN 08:13 → 6SEL 15:46
PROVIDERS: ADMIT Surgery; ATTEND Surgery
PROC: 04UL0JZ Supplement Left Femoral Artery with Synthetic Substitute, Open Approach (ICD-10-PCS; principal; 2018-04-25 09:45)
PROC: 04CL0ZZ Extirpation of Matter from Left Femoral Artery, Open Approach (ICD-10-PCS; principal; 2018-04-25 09:45)
DX: I70.212 Atherosclerosis of native arteries of extremities with intermittent claudication, left leg (principal); E78.5 Hyperlipidemia, unspecified; I25.10 Atherosclerotic heart disease of native coronary artery without angina pectoris; Z79.02 Long term (current) use of antithrombotics/antiplatelets; Z79.82 Long term (current) use of aspirin; Z80.0 Family history of malignant neoplasm of digestive organs; Z82.49 Family history of ischemic heart disease and other diseases of the circulatory system; Z87.891 Personal history of nicotine dependence; Z95.1 Presence of aortocoronary bypass graft; Z95.5 Presence of coronary angioplasty implant and graft; E78.00 Pure hypercholesterolemia, unspecified
CPT/HCPCS: 80048; 85027; 86850; 86900; 86901; 88304; 88311

== ENCOUNTER → 2018-08-22 | Outpatient (CLI) | payer MEDICARE ==
[2018-08-22 20:51] LABS: T4, Free (Free Thyroxine) 1.2 ng/dL (0.80-1.80)
== END | disposition home or self-care (01) ==
LOC: LABWHC1 11:38
PROVIDERS: ATTEND Psychiatry & Neurology Psychiatry
DX: E03.9 Hypothyroidism, unspecified (principal)
CPT/HCPCS: 36415; 84439; 84443

== ENCOUNTER 2019-03-07 09:17 | Day surgery (SDC) | payer MEDICARE ==
[~2019-03-07 09:17] MED LIST changes: +ALPRAZolam 0.25 MG TAB PO PRN; +ASPIRIN 325 MG TAB PO STA; -HYDROmorphone 1 MG/ML 1 ML SYRINGE IVP PRN; -ONDANSETRON 4 MG/2 ML VIAL IVP ONE; +SODIUM CHLORIDE 0.9% 1,000 ML in EMPTY BAG 1 BAG IV ONE; -ceFAZolin IN SWFI 2 GM/20 ML SYRINGE IVP ONE; -fentaNYL (PF) 50 MCG/ML 2 ML AMP IV PRN
[2019-03-07 09:51] VITALS: RESP 18
[2019-03-07] MEDS: MIDAZOLAM (PF) 2 MG/2 ML VIAL IV ONE ×2 (10:54→11:05)
[2019-03-07] MEDS ORDERED: LIDOCAINE 1% INJ 10MG/ML (20 ML MDV) SQ ONE (10:56)
[2019-03-07] MEDS ORDERED: IOPAMIDOL-370 100ML BTL INJ ONE (11:35)
[2019-03-07] MEDS ORDERED: IOPAMIDOL-250 100ML BTL INTRAARTER ONE ×2 (11:37)
[2019-03-07] MEDS ORDERED: RX INFO: IV CONTRAST WAS GIVEN 1 EACH MISC MISCELLANE PRN (11:42)
[2019-03-07] MEDS ORDERED: SODIUM CHLORIDE 0.9% 1,000 ML IV SCH (11:45)
--- NOTE | 2019-03-07 12:42 | CC ---
CARDIAC CATHETERIZATION REPORT DATE OF SERVICE: March 07, 2019 PERFORMING PHYSICIAN: Alvaro Gregorio MD, portfolio specialist. PROCEDURE PERFORMED: 1. Selective left coronary angiogram. 2. SVG to RCA angiogram. 3. Left internal mammary artery to LAD angiogram. 4. Left heart catheterization. INDICATION: This is a 68-year-old gentleman with history of coronary artery disease and prior coronary artery bypass grafting as well as coronary artery stenting with the last heart catheterization was performed in 2018 showing severe triple-vessel CAD with the occlusion of all vein grafts and patent FAGAN to LAD. At that point, the patient underwent successful stenting of the left circumflex coronary artery. Recently he was experiencing symptoms of chest discomfort concerning for angina. Because of that, a heart catheterization was advised. APPROACH: Right common femoral artery. COMPLICATION: None. LEVEL OF SEDATION: Moderate with sedation length of 20 minutes. PROCEDURE DESCRIPTION: After obtaining an informed consent, the patient was brought to the cardiac dairy and food laboratory assistant. The right common femoral artery was cannulated using micropuncture technique and the micropuncture wire passed easily then I placed a 6-[place] sheath. I did selective left coronary angiogram using JL4 catheter. The FAGAN to LAD angiogram was performed using the JR4 catheter. SVG to RCA was performed using multipurpose catheter. The left heart catheterization was performed using JR4 catheter. The procedure was completed without any complication. SELECTIVE CORONARY ANGIOGRAM: 1. The left main is calcified with mild disease only. It bifurcates into left circumflex and left anterior descending artery. 2. The left circumflex is a large caliber vessel. It is a nondominant vessel. The left circumflex is stented in the midportion and the stent is patent. 3. The LAD is 100% occluded in the proximal portion. CORONARY BYPASSES ANGIOGRAM: 1. The SVG to RCA is patent. 2. The FAGAN to LAD is patent with diffuse disease distal to the FAGAN anastomosis appeared to be in the range of 50% to 60%. HEMODYNAMICS: The left ventricular end-diastolic pressure was about 10 mmHg without significant gradient across the aortic valve. CONCLUSION: 1. Severe triple-vessel coronary artery disease. 2. Patent FAGAN to LAD. 3. Patent stent in the mid left circumflex. 4. Patent SVG to RCA. POSTPROCEDURE MANAGEMENT: 1. Risk factors modifications. 2. Aggressive cholesterol control. 3. Follow up with the patient. MMODL / IJN: [id number] /
--- NOTE | 2019-03-07 12:51 | AN ---
ANGIOGRAPHY REPORT PROCEDURE PERFORMED: 1. An abdominal aortogram. 2. Bilateral lower extremities runoff. INDICATION: This is a pleasant 68-year-old gentleman with history of peripheral arterial disease and history of left common femoral endarterectomy as well as bilateral SFA balloon angioplasty was experiencing bilateral lower extremity intermittent claudication, worse on the right side. He was brought today to undergo an aortogram with runoff. COMPLICATION: None. LEVEL OF SEDATION: Moderate with sedation length of 12 minutes. PROCEDURE DESCRIPTION: Please refer to access description was dictated on the heart catheterization was performed at the same day. After the heart catheterization was performed, I pulled the pigtail catheter all the way to the aorta where initially it was placed in the descending aorta at the level of the renal arteries and it was pulled into above the bifurcation of the aorta to right and left common iliac arteries. The procedure was performed without any complication. SELECTIVE PERIPHERAL ANGIOGRAM: 1. The aorta is extremely calcified with mild disease only. 2. Common iliac arteries: The right common iliac artery appeared to be normal and the left common iliac artery appeared to have intermediate disease only. 3. External iliac arteries: The right and left external iliac arteries are patent. 4. Internal iliac arteries: Both internal iliac arteries are patent. 5. Common femoral arteries: The right and left common femoral arteries appear to be angiographically normal. 6. Profunda: Both profunda are patent. 7. SFA: The right SFA is occluded from the proximal portion all the way to the popliteal. The left SFA is stented and the stent is patent. 8. Popliteal: The right popliteal appeared to be diffusely diseased and the left popliteal appeared to be patent. 9. Below the knee: The arteries below the knee were poorly visualized, but with selective injection an AT and PT. CONCLUSION: 1. 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 2. Occluded right SFA from the proximal portion all the way to the Niraj canal. POSTPROCEDURE MANAGEMENT: The patient will be scheduled to undergo a VISCOSITY WORKER of the right SFA from right pedal approach. MMODL / IJN: [id number] /
[2019-03-07 13:22] VITALS: TEMP 98.8
[2019-03-07 13:24] VITALS: BMI 33.3
--- NOTE | 2019-03-07 13:58 | IR ---
Fluoroscopy HISTORY: Pain in leg 7 minutes fluoroscopy time supplied to the referring clinician. 435 intraoperative C-arm images docu ment the procedure. See dictated report from cardiology.
[2019-03-07 16:11] VITALS: BP 158/67; PULSE 64
== END 2019-03-07 18:42 | disposition home or self-care (01) ==
LOC: CATHCVL 09:17 → 1SOBS 11:37 → CATHCVL 18:42
PROVIDERS: ATTEND Internal Medicine Interventional Cardiology
DX: I25.10 Atherosclerotic heart disease of native coronary artery without angina pectoris (principal); I70.213 Atherosclerosis of native arteries of extremities with intermittent claudication, bilateral legs; I70.0 Atherosclerosis of aorta; I10 Essential (primary) hypertension; E78.5 Hyperlipidemia, unspecified; Z95.1 Presence of aortocoronary bypass graft; Z95.5 Presence of coronary angioplasty implant and graft; I70.8 Atherosclerosis of other arteries; Z79.82 Long term (current) use of aspirin; Z79.899 Other long term (current) drug therapy; Z79.02 Long term (current) use of antithrombotics/antiplatelets
CPT/HCPCS: 93459; 75625; 75716; C1769 ×2; J2001; Q9966; Q9967; J2250

== ENCOUNTER 2019-03-14 16:09 | Day surgery (SDC) | payer MEDICARE ==
[2019-03-12 15:41] VITALS: BMI 33.2
[2019-03-14 11:34] LABS: Basophils % (A) 0 %; Eosinophils % (A) 0 %; HCT 44.3 % (39.0-53.0); HGB 14.5 gm/dL (13.0-17.5); Lymphocytes # (A) 0.8 k/uL (1.0-4.8); Lymphocytes % (A) 7 %; MCH 31.8 pg (25.0-35.0); MCHC 32.7 g/dL (31.0-37.0); MCV 97.2 fL (80.0-100.0); Monocytes # (A) 0.3 k/uL (0-1.0); Monocytes % (A) 2 %; Neutrophils # (A) 11.1 k/uL (1.3-7.7); Neutrophils % (A) 90 %; Platelet Count 216 k/uL (150-450); RBC 4.56 m/uL (4.30-5.90); RDW 14.6 % (11.5-15.5); WBC 12.4 k/uL (3.8-10.6)
[2019-03-14 11:38] LABS: African American GFR (CKD) >90 (>60 ml/min/1.73 sqM); Anion Gap 9 mmol/L; Blood Urea Nitrogen 20 mg/dL (9-20); Calcium 9.2 mg/dL (8.4-10.2); Carbon Dioxide 26 mmol/L (22-30); Chloride 103 mmol/L (98-107); Glucose 124 mg/dL (74-99); Potassium 4.6 mmol/L (3.5-5.1); Sodium 138 mmol/L (137-145)
[~2019-03-14 16:09] MED LIST changes: +CLOPIDOGREL 75 MG TAB ONE; +CYCLOBENZAPRINE 10 MG TAB PO PRN; +FAMOTIDINE 20 MG TAB PO ONE; +HEPARIN SODIUM 1,000 UN/ML (10ML VL) IV ONE; +LIDOCAINE 1% INJ 10MG/ML (20 ML MDV) SQ ONE; +LIDOCAINE 2% INJ 20 MG/ML SQ ONE; +MIDAZOLAM (PF) 2 MG/2 ML VIAL IVP ONE; +SODIUM CHLORIDE 0.9% 1,000 ML IV ONE; +SODIUM CHLORIDE 0.9% 1,000 ML IV SCH; +SODIUM CHLORIDE 0.9% 500 ML 500 ML with niCARdipine 6.25 MG, NITROGLYCERIN-D5W PMX 0.05... IV ONE; +fentaNYL (PF) 50 MCG/ML 2 ML AMP IVP ONE
[2019-03-14] MEDS ORDERED: CLOPIDOGREL 75 MG TAB PO STA (17:05)
[2019-03-14] MEDS: busPIRone HCl 5 MG TAB PO SCH ×2 (17:10→19:23)
[2019-03-14] MEDS ORDERED: ATROPINE SULFATE 0.1 MG/ML 10ML SYRINGE ONE (17:34)
[2019-03-14] MEDS: METOPROLOL TARTRATE 25 MG TAB PO SCH (19:23)
[2019-03-14] MEDS ORDERED: PRAVASTATIN SODIUM 80 MG TAB PO SCH (21:00)
[2019-03-14] MEDS ORDERED: FLUoxetine HCL 20 MG CAP PO SCH (21:00)
[2019-03-15 07:56] VITALS: BP 126/58; PULSE 54; RESP 15; TEMP 97
--- NOTE | 2019-03-15 08:14 | AN ---
ANGIOGRAPHY REPORT DATE OF SERVICE: March 14, 2019 PERFORMING PHYSICIAN: Alvaro Gregorio MD, Ramp And Cargo Supervisor. PROCEDURE PERFORMED: 1. Selective right [id number] angiogram/right popliteal angiogram/right SFA angiogram. 2. Intravascular ultrasound IVUS of the right popliteal and right SFA. 3. An atherectomy of the right popliteal using the orbital atherectomy device from [facility]. 4. Successful balloon angioplasty of the right popliteal and right SFA. 5. Selective left common femoral artery angiogram. INDICATION: This is a 68-year-old gentleman with history of peripheral arterial disease and prior bilateral peripheral and FA and prior bilateral femoral-popliteal angioplasty who continues to have right leg intermittent claudication and underwent an aortogram with runoff which revealed occluded right SFA and right popliteal. He was brought today to undergo a SECURITY ORDERLY. APPROACH: Left common femoral artery. COMPLICATION: None. LEVEL OF SEDATION: Moderate with sedation length of 128 minutes. PROCEDURE DESCRIPTION: After obtaining an informed consent, the patient was brought to the cardiac prosthetic lab technician. The left common femoral artery was cannulated using micropuncture technique under ultrasound guidance, the micropuncture wire passed easily, then I placed a 6-Surinamese 11 cm sheath in the left groin. At that point, anticoagulation was initiated using heparin. I did select the right profunda using a 0.035 [place] Advantage wire with a 5-Surinamese Rim catheter. After that, I did exchange my short sheath into 7 cm 6-Surinamese Raabe sheath using 0.035 [place] Advantage wire. The tip of the sheath was positioned in the right common femoral artery. I did cross the chronic total occlusion of the right SFA and right popliteal using 0.018 gardner tip glidewire with the backup support of 0.018 CXI catheter. After that, I did intravascular ultrasound of the right SFA and right popliteal which proved that I was in the true lumen. I did subsequently selective right [id number] angiogram which revealed only 1 vessel runoff below the knee, which is the AT only. Also the intravascular ultrasound to prove that I was in the true lumen. I did after that atherectomy of the right popliteal using the orbital atherectomy device from [place]. Then I did balloon angioplasty using 5 mm Chocolate balloon. The following angiogram showed good angiographic results with reduction of stenosis from 100% to about 50% to 60%. In the SFA, I did balloon angioplasty using long AngioSculpt balloon which was 6 mm balloon. The following angiogram showed also good angiographic results with reduction of stenosis from 100% to about 50% to 60%. After that, I did exchange my long sheath into short sheath using 0.035 [place] Advantage wire. After that, I did selective left common femoral artery angiogram. The procedure was completed without any complication. POSTPROCEDURE MANAGEMENT: 1. Surveillance Doppler of the right SFA and right popliteal. 2. Dual anti-platelet therapy. 3. Risk factors modifications. 4. Follow up with the patient. MMODL / IJN: [id number] /
[2019-03-15] MEDS ORDERED: VENLAFAXINE HCL ER 150 MG CAP PO SCH (09:00)
[2019-03-15] MEDS ORDERED: CLOPIDOGREL 75 MG TAB PO SCH (09:00)
[2019-03-15] MEDS ORDERED: ASPIRIN 81 MG PO SCH (09:00)
[2019-03-15] MEDS ORDERED: CYANOCOBALAMIN 500 MCG TAB PO SCH (09:00)
[2019-03-15] MEDS: busPIRone HCl 5 MG TAB PO SCH (09:55)
[2019-03-15] MEDS: METOPROLOL TARTRATE 25 MG TAB PO SCH (09:57)
--- NOTE | 2019-03-15 22:05 | DS ---
DISCHARGE SUMMARY DATE OF ADMISSION: 03/14/2019 DATE OF DISCHARGE: 03/15/2019 BRIEF HISTORY: This is a very pleasant 68-year-old gentleman who underwent yesterday successful atherectomy and balloon angioplasty of the right SFA and right popliteal. The procedure was performed from the left groin, which is soft and nontender and without any bruises. The patient is going to be discharged home on dual anti-platelet therapy and I will follow up with the patient next week in the office. MMRYAN / RUSH: [id number] /
== END 2019-03-15 11:17 | disposition home or self-care (01) ==
LOC: CATHCVL 16:09 → 3SCARD 16:09 → CATHCVL 03-15 11:17
PROVIDERS: ATTEND Internal Medicine Interventional Cardiology
DX: I70.211 Atherosclerosis of native arteries of extremities with intermittent claudication, right leg (principal); I70.92 Chronic total occlusion of artery of the extremities; I25.10 Atherosclerotic heart disease of native coronary artery without angina pectoris; I10 Essential (primary) hypertension; E78.5 Hyperlipidemia, unspecified; I70.202 Unspecified atherosclerosis of native arteries of extremities, left leg; Z95.5 Presence of coronary angioplasty implant and graft; I65.23 Occlusion and stenosis of bilateral carotid arteries; Z95.1 Presence of aortocoronary bypass graft; Z95.820 Peripheral vascular angioplasty status with implants and grafts; Z79.02 Long term (current) use of antithrombotics/antiplatelets; Z79.82 Long term (current) use of aspirin; Z79.899 Other long term (current) drug therapy
CPT/HCPCS: 37225; 37252; 37253; 80048; 85025; C1894 ×4; C1725 ×2; C1769 ×7; C1714; C1753; J2001 ×2; J3010; J1644; J2250

== ENCOUNTER → 2019-03-14 | Day surgery (SDC) | payer MEDICARE ==
--- NOTE | 2019-03-14 15:26 | IR ---
EXAMINATION TYPE: IR architectural job captain femoral popliteal DATE OF EXAM: 03/14/2019 COMPARISON: NONE HISTORY: Fluoroscopy time. Fluoroscopy was provided to the referring clinician.
== END ==
LOC: CATHCVL 10:44
PROVIDERS: ATTEND Internal Medicine Interventional Cardiology
DX: I73.9 Peripheral vascular disease, unspecified (principal)

== ENCOUNTER → 2019-08-14 | Outpatient (CLI) | payer MEDICARE ==
[2019-08-14 13:48] LABS: HCT 41.9 % (39.0-53.0); HGB 13.5 gm/dL (13.0-17.5); MCH 31.4 pg (25.0-35.0); MCHC 32.3 g/dL (31.0-37.0); MCV 97.3 fL (80.0-100.0); Mean Platelet Volume 8.5; Platelet Count 167 k/uL (150-450); RDW 13.8 % (11.5-15.5)
[2019-08-14 19:10] LABS: African American GFR (CKD) 88.6 (60.0-200.0); Albumin 3.9 g/dL (3.80-4.90); Albumin/Globulin Ratio 1.95 (1.60-3.17); Anion Gap 8.1 mmol/L (4.00-12.00); Calcium 8.8 mg/dL (8.7-10.3); Carbon Dioxide 28.9 mmol/L (21.6-31.8); Non-African American GFR(CKD) 76.5 (60.0-200.0); Potassium 4.5 mmol/L (3.5-5.5); Total Bilirubin 0.4 mg/dL (0.2-1.2); Total Protein 5.9 g/dL (6.2-8.2)
[2019-08-14 19:18] LABS: T4, Free (Free Thyroxine) 1.2 ng/dL (0.80-1.80)
== END | disposition home or self-care (01) ==
LOC: LABWHC1 12:36
PROVIDERS: ATTEND Psychiatry & Neurology Psychiatry
DX: F33.1 Major depressive disorder, recurrent, moderate (principal); E78.5 Hyperlipidemia, unspecified; E03.9 Hypothyroidism, unspecified; Z79.899 Other long term (current) drug therapy
CPT/HCPCS: 36415; 80053; 84439; 84443; 85027

== ENCOUNTER → 2022-07-29 | Outpatient (CLI) | payer MEDICARE ==
[2022-07-29 15:33] LABS: HCT 43.2 % (39.6-50.0); HGB 13.9 g/dL (13.0-17.0); MCH 31.8 pg (27.0-32.0); MCHC 32.2 g/dL (32.0-37.0); MCV 98.9 fL (80.0-97.0); Mean Platelet Volume 10.4 fL (9.5-12.2); NRBC Per 100 WBC 0 /100 WBCS (0.0-0.0); Platelet Count 237 X 10*3/uL (140-440); RBC 4.37 X 10*6/uL (4.40-5.60); RDW 13.1 % (11.5-14.5); WBC 8.58 X 10*3/uL (4.50-10.00)
[2022-07-29 16:28] LABS: African American GFR (CKD) 86.8 (60.0-200.0); Anion Gap 11.5 mmol/L (10.00-18.00); Blood Urea Nitrogen 16.6 mg/dL (9.0-27.0); Carbon Dioxide 25.5 mmol/L (20.0-27.5); Non-African American GFR(CKD) 74.9 (60.0-200.0); Potassium 4.2 mmol/L (3.5-5.5)
== END | disposition home or self-care (01) ==
LOC: LABPAT 10:44
PROVIDERS: ATTEND Internal Medicine Interventional Cardiology
DX: Z01.812 Encounter for preprocedural laboratory examination (principal); I70.213 Atherosclerosis of native arteries of extremities with intermittent claudication, bilateral legs
CPT/HCPCS: 80051; 82565; 84520; 85027

== ENCOUNTER → 2022-08-17 | Day surgery (SDC) | payer MEDICARE ==
[2022-08-12 14:10] VITALS: BMI 32.9
[~2022-08-17] MED LIST changes: +ALPRAZolam 0.5 MG TAB PO PRN; +ASPIRIN 325 MG TAB PO PRN; -ASPIRIN 325 MG TAB PO STA; -CLOPIDOGREL 75 MG TAB ONE; -CYCLOBENZAPRINE 10 MG TAB PO PRN; -FAMOTIDINE 20 MG TAB PO ONE; -HEPARIN SODIUM 1,000 UN/ML (10ML VL) IV ONE; +HEPARIN SODIUM,PORCINE 10,000 UNIT in SODIUM CHLORIDE 0.9% 1,000 ML IRRIGATION PRN; +HEPARIN SODIUM,PORCINE 2,500 UNIT in SODIUM CHLORIDE 0.9% 250 ML IRRIGATION PRN; +IOPAMIDOL-250 100ML BTL INTRAARTER ONE; -LIDOCAINE 1% INJ 10MG/ML (20 ML MDV) SQ ONE; +LIDOCAINE 1% INJ 10MG/ML (30 ML VIAL-PF) SQ ONE; -LIDOCAINE 2% INJ 20 MG/ML SQ ONE; -MIDAZOLAM (PF) 2 MG/2 ML VIAL IVP ONE; +MIDAZOLAM 2 MG/2 ML VIAL IV ONE; +NALOXONE 0.4 MG/ML 1 ML VIAL IVP PRN; -SODIUM CHLORIDE 0.9% 1,000 ML IV ONE; -SODIUM CHLORIDE 0.9% 1,000 ML IV SCH; +SODIUM CHLORIDE 0.9% 1,000 ML in EMPTY BAG 1 BAG IV SCH; -SODIUM CHLORIDE 0.9% 500 ML 500 ML with niCARdipine 6.25 MG, NITROGLYCERIN-D5W PMX 0.05... IV ONE; +ZOLPIDEM 5 MG TAB PO PRN; -fentaNYL (PF) 50 MCG/ML 2 ML AMP IVP ONE
[2022-08-17 08:21] VITALS: RESP 16; TEMP 98.3
--- NOTE | 2022-08-17 09:51 | IR ---
EXAMINATION TYPE: IR angio abdominal w runoff DATE OF EXAM: 08/17/2022 COMPARISON: NONE HISTORY: Fluoroscopy time. Fluoroscopy was provided to the referring clinician.
--- NOTE | 2022-08-17 12:56 | P.PCN ---
Date of Procedure: 08/17/22 Operative Findings: AN ABDOMINAL AORTOGRAM AND BILATERAL LOWER EXTREMITIES RUNOFF PERFORMING PHYSICIAN: Alvaro Gregorio MD PROCEDURE PERFORMED: 1. An abdominal aortogram 2. Bilateral lower extremities runoff INDICATION: Severe bilateral lower excellent is intermittent claudication in this 72-year-old gentleman who is known to have PAD. He underwent an arterial duplex study showed severe bilateral fem-pop disease COMPLICATION: None LEVEL OF SEDATION: Moderate was sedation length of 15 minutes APPROACH: Right common femoral artery PROCEDURE DESCRIPTION: After obtaining informed consent and explaining the procedure benefits, risks, and complications, the patient was brought to the cardiac lab technician. The right groin was prepped and draped in sterile fashion. The right common femoral artery was cannulated using micropuncture technique, under ultrasound guidance. A micropuncture wire was advanced, and the micropuncture sheath was advanced over the wire, then the micropuncture sheath was exchanged over an 0.35 wire into a 5-Romansh sheath dilator assembly then the wire and dilator were removed and sheath was flushed. We did an abdominal aortogram and bilateral lower extremities runoff using 5- Romansh pigtail catheter using a power injection. The catheter was initially placed at the level of the renal arteries, and it was pulled into above the bifurcation of the aorta into right and left common iliac arteries. The procedure was completed and there was no complications. SELECTIVE PERIPHERAL ANGIOGRAM: The abdominal aorta: Calcified was mild disease only. The common iliac arteries: The right common iliac artery appeared to have mild disease only. The left common iliac artery appears to have an intermediate lesion appears to be in the range of 60-70%. The external iliac arteries: The right and left external iliac arteries appear to have mild disease only The internal iliac arteries: The right internal iliac artery appeared to be angiographically normal. 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 Popliteal arteries: The right and left popliteal appeared to have [id number]-[id number] disease Below the knees: The arteries below the knee are poorly visualized but there is anterior tibial and peroneal noted. CONCLUSION: Occluded bilateral SFA Intermediate disease involving the left common iliac artery POSTPROCEDURE MANAGEMENT: BLAST FURNACE OPERATOR and assess if the iliac lesion on the left side is flow-limiting
[2022-08-17 12:59] VITALS: PULSE 60
[2022-08-17 13:00] VITALS: BP 141/64
== END ==
LOC: CATHCVL 07:42
PROVIDERS: ATTEND Internal Medicine Interventional Cardiology
DX: I70.213 Atherosclerosis of native arteries of extremities with intermittent claudication, bilateral legs (principal); I72.3 Aneurysm of iliac artery; I25.10 Atherosclerotic heart disease of native coronary artery without angina pectoris; I25.9 Chronic ischemic heart disease, unspecified; I11.9 Hypertensive heart disease without heart failure; E78.5 Hyperlipidemia, unspecified; I99.8 Other disorder of circulatory system; I65.29 Occlusion and stenosis of unspecified carotid artery; Z95.1 Presence of aortocoronary bypass graft; Z88.8 Allergy status to other drugs, medicaments and biological substances; Z79.02 Long term (current) use of antithrombotics/antiplatelets; Z79.899 Other long term (current) drug therapy; E78.00 Pure hypercholesterolemia, unspecified
CPT/HCPCS: 36200; 75625; 75716; 76937; 36245; C1769 ×5; C1894; J2250; J2001; Q9966

== ENCOUNTER 2022-09-08 09:53 | Day surgery (SDC) | payer MEDICARE ==
[2022-09-03 10:49] VITALS: BMI 33.0
[~2022-09-08 09:53] MED LIST changes: -HEPARIN SODIUM,PORCINE 10,000 UNIT in SODIUM CHLORIDE 0.9% 1,000 ML IRRIGATION PRN; -HEPARIN SODIUM,PORCINE 2,500 UNIT in SODIUM CHLORIDE 0.9% 250 ML IRRIGATION PRN; -IOPAMIDOL-250 100ML BTL INTRAARTER ONE; -LIDOCAINE 1% INJ 10MG/ML (30 ML VIAL-PF) SQ ONE; -MIDAZOLAM 2 MG/2 ML VIAL IV ONE; -NALOXONE 0.4 MG/ML 1 ML VIAL IVP PRN; -SODIUM CHLORIDE 0.9% 1,000 ML in EMPTY BAG 1 BAG IV SCH; -ZOLPIDEM 5 MG TAB PO PRN
[2022-09-08] MEDS ORDERED: CLOPIDOGREL 75 MG TAB ONE ×2 (10:18→15:09)
[2022-09-08] MEDS ORDERED: SODIUM CHLORIDE 0.9% 1,000 ML IV ONE (10:20)
[2022-09-08 10:25] LABS: Basophils % (A) 0 %; Eosinophils % (A) 0 %; HCT 40.1 % (39.0-53.0); Lymphocytes # (A) 0.9 k/uL (1.0-4.8); Lymphocytes % (A) 6 %; MCH 32.5 pg (25.0-35.0); MCV 92.8 fL (80.0-100.0); Mean Platelet Volume 8.3; Monocytes # (A) 0.3 k/uL (0-1.0); Monocytes % (A) 2 %; Neutrophils # (A) 12.5 k/uL (1.3-7.7); Neutrophils % (A) 91 %; Platelet Count 217 k/uL (150-450); RBC 4.32 m/uL (4.30-5.90); RDW 12.8 % (11.5-15.5); WBC 13.8 k/uL (3.8-10.6)
[2022-09-08 10:34] LABS: African American GFR (CKD) >90 (>60 ml/min/1.73 sqM); Anion Gap 10 mmol/L; Blood Urea Nitrogen 22 mg/dL (9-20); Calcium 8.5 mg/dL (8.4-10.2); Carbon Dioxide 28 mmol/L (22-30); Chloride 99 mmol/L (98-107); Glucose 139 mg/dL (74-99); Non-African American GFR(CKD) 80 (>60 ml/min/1.73 sqM); Potassium 3.2 mmol/L (3.5-5.1); Sodium 137 mmol/L (137-145)
[2022-09-08] MEDS ORDERED: niCARdipine 25 MG/10 ML VIAL ONE (13:14)
[2022-09-08] MEDS ORDERED: HEPARIN SODIUM 1,000 UN/ML (10ML VL) ONE (13:14)
[2022-09-08] MEDS ORDERED: MIDAZOLAM 2 MG/2 ML VIAL IVP ONE (13:22)
[2022-09-08] MEDS ORDERED: LIDOCAINE 1% INJ 10MG/ML (30 ML VIAL-PF) SQ ONE (13:24)
[2022-09-08] MEDS: HEPARIN SODIUM 1,000 UN/ML (10ML VL) IV ONE ×3 (13:30→14:31)
[2022-09-08] MEDS ORDERED: niCARdipine Syringe (1,000 mcg/10 mL) INTRACORON ONE (14:56)
[2022-09-08] MEDS ORDERED: NITROGLYCERIN 1000MCG/10ML SYRINGE INTRACORON ONE (14:56)
[2022-09-08] MEDS ORDERED: MELOXICAM 7.5 MG TAB PO PRN (15:01)
[2022-09-08] MEDS ORDERED: CYCLOBENZAPRINE 10 MG TAB PO PRN (15:01)
[2022-09-08] MEDS ORDERED: IOPAMIDOL-250 100ML BTL INTRAARTER ONE (15:06)
[2022-09-08] MEDS ORDERED: CLOPIDOGREL 75 MG TAB PO ONE (15:06)
[2022-09-08] MEDS ORDERED: NON FORMULARY DRUG (Evolocumab [Repatha Syringe] 140 MG/ML Each) SQ SCH (15:15)
--- NOTE | 2022-09-08 15:24 | P.PCN ---
Date of Procedure: 09/08/22 Operative Findings: PERCUTANEOUS PERIPHERAL INTERVENTION Performing physician Alvaro Gregorio M.D. Procedure performed #1 Successful balloon angioplasty of the right popliteal artery and successful stenting of the right SFA with adjunctive use of atherectomy and lithotripsy #2 Intravascular ultrasound of the right popliteal and right SFA #3 Right lower extremity angiogram and left common femoral artery and #4 Ultrasound-guided access of the right common femoral artery Indication Right lower 70s intermittent claudication interfering with the patient physical activities in this 71-year-old gentleman who underwent an angiogram and showed occluded right SFA and right popliteal Approach Left common femoral artery Complications None Level of sedation Moderate with a sedation time of 98 minutes Procedure description After obtaining an informed consent the patient was brought to the cardiac animal laboratory helper. The left common femoral artery was cannulated using Vicryl puncture technique under ultrasound guidance, the micropuncture wire passed easily then I placed a 6-Malian sheath 11 cm at the left common femoral artery. Subsequently anticoagulation was initiated using heparin with continuous ACT monitoring. After that I did advanced an 035 stiff Glidewire to the aorta and I did exchange my 11 cm sheath into the 70 cm sheath using 035 stiff Glidewire. After that I did advance the wire into the right profunda using rim catheter. Attempting advancing the long sheath over the rim and the Glidewire was unsuccessful. The right iliac was extremely calcified and tortuous. For that reason I did exchange my stiff Glidewire into a stupor core wire using an 035 catheters. Then I was able to advance multipurpose catheter over the stiff wire. Subsequently the the sheath was advanced over the supra core wire and multipurpose catheter all the way to the right common femoral artery. The right lower excision angiogram was performed and revealed intermediate to severe disease involving the right popliteal and occluded the right SFA which seems to be in-stent occlusion. Subsequently I was able to wire the SFA and popliteal on the right side using 014 wire. Intravascular ultrasound was performed and showed extremely calcified right popliteal with a diameter about 5 mm and also we're in the SFA in the true lumen. After that I did atherectomy of the right popliteal using the CSI device. Then lithotripsy balloon was performed on the right popliteal because it was extremely calcified using 5 mm x 60 mm balloon. Then I did successful balloon angioplasty of the right SFA using 6 mm balloon. The final angiogram showed an area at the distal right SFA and proximal right popliteal appeared to be hazy. I decided to cover that with a stent. I deployed a 6.0 x 100 mm stent where the stent was positioned under fluoroscopy guidance and deployed under fluoroscopy guidance. Postdilatation was performed using 5 mm balloon. Final angiogram was performed and showed good angiographic results. After that I did exchange my long sheath into short sheath using the stiff supra core wire. Final left common femoral artery angiogram was performed. The procedure was completed was no complications Postprocedure management #1 dual antiplatelet therapy #2 aggressive cholesterol control #3 risk factors modification #4 follow-up with the patient
[2022-09-08] MEDS: busPIRone HCl 5 MG TAB PO SCH (20:21)
[2022-09-08] MEDS: METOPROLOL TARTRATE 25 MG TAB PO SCH (20:21)
[2022-09-08] MEDS ORDERED: PRAVASTATIN SODIUM 80 MG TAB PO SCH (21:00)
--- NOTE | 2022-09-08 21:46 | IR ---
EXAMINATION TYPE: IR stent intravas non coronary DATE OF EXAM: 09/08/2022 CLINICAL HISTORY: Right leg pain. TECHNIQUE: Fluoroscopy. COMPARISON: None. FINDINGS: Fluoroscopic guidance was provided during right lower extremity angiogram with stent inser tion procedure performed by Dr. Gregorio. A total of 35.8 minute of fluoroscopic time was utilized durin g the procedure and 492 spot images was acquired. Please refer to procedure note for further details. IMPRESSION: As Above.
[2022-09-09 07:19] LABS: Basophils % (A) 0 %; Eosinophils % (A) 0 %; HCT 33.3 % (39.0-53.0); HGB 11.3 gm/dL (13.0-17.5); Lymphocytes # (A) 1.8 k/uL (1.0-4.8); Lymphocytes % (A) 22 %; MCH 32.7 pg (25.0-35.0); MCHC 33.8 g/dL (31.0-37.0); MCV 96.6 fL (80.0-100.0); Mean Platelet Volume 8.1; Monocytes # (A) 0.5 k/uL (0-1.0); Monocytes % (A) 5 %; Neutrophils # (A) 5.9 k/uL (1.3-7.7); Neutrophils % (A) 70 %; Platelet Count 163 k/uL (150-450); RBC 3.45 m/uL (4.30-5.90); RDW 12.5 % (11.5-15.5); WBC 8.4 k/uL (3.8-10.6)
[2022-09-09 07:37] LABS: African American GFR (CKD) >90 (>60 ml/min/1.73 sqM); Anion Gap 3 mmol/L; Blood Urea Nitrogen 21 mg/dL (9-20); Calcium 7.5 mg/dL (8.4-10.2); Carbon Dioxide 28 mmol/L (22-30); Chloride 105 mmol/L (98-107); Glucose 86 mg/dL (74-99); Non-African American GFR(CKD) 83 (>60 ml/min/1.73 sqM); Sodium 136 mmol/L (137-145)
--- NOTE | 2022-09-09 08:22 | P.DS ---
Providers Attending physician: Alvaro Gregorio Primary care physician: [facility] Course: The patient is a pleasant 71-year-old gentleman who underwent yesterday 64 recanalizing occluded right SFA. He was seen this morning. Using with him if he stable. He is asymptomatic. The left groin is soft and nontender with no bruises. His potassium is low which we are going to replace. The patient is going to be discharged home. Plan - Discharge Summary Discharge Rx Participant: Yes New Discharge Prescriptions: Continue busPIRone HCL 15 mg PO BID Metoprolol Tartrate 25 mg PO BID Aspirin [Adult Low Dose Aspirin EC] 81 mg PO DAILY #30 tablet. Pravastatin Sodium [Pravachol] 80 mg PO HS Clopidogrel [Plavix] 75 mg PO QAM FLUoxetine HCL [PROzac] 40 mg PO DAILY Cyclobenzaprine [Flexeril] 10 mg PO HS PRN PRN Reason: Pain Meloxicam [Mobic] 7.5 mg PO DAILY PRN PRN Reason: Pain Evolocumab [Repatha Syringe] 140 mg SQ DIRECTED hydroCHLOROthiazide 25 mg PO DAILY amLODIPine [Norvasc] 10 mg PO DAILY Discharge Medication List Metoprolol Tartrate 25 mg PO BID 02/16/18 [History] busPIRone HCL 15 mg PO BID 02/16/18 [History] Aspirin [Adult Low Dose Aspirin EC] 81 mg PO DAILY #30 tablet. 03/30/18 [Rx] Pravastatin Sodium [Pravachol] 80 mg PO HS 05/10/18 [History] Clopidogrel [Plavix] 75 mg PO QAM 02/28/19 [History] FLUoxetine HCL [PROzac] 40 mg PO DAILY 02/28/19 [History] Cyclobenzaprine [Flexeril] 10 mg PO HS PRN 03/07/19 [History] hydroCHLOROthiazide 25 mg PO DAILY 08/12/22 [History] Evolocumab [Repatha Syringe] 140 mg SQ DIRECTED 08/17/22 [History] Meloxicam [Mobic] 7.5 mg PO DAILY PRN 08/17/22 [History] amLODIPine [Norvasc] 10 mg PO DAILY 08/17/22 [History] Follow up Appointment(s)/Referral(s): Alvaro Gregorio MD [STAFF PHYSICIAN] - 1 Week
[2022-09-09] MEDS ORDERED: POTASSIUM CHLORIDE ER 20 MEQ TAB.ER PO STA (08:48)
[2022-09-09] MEDS ORDERED: CLOPIDOGREL 75 MG TAB PO SCH (09:00)
[2022-09-09] MEDS ORDERED: amLODIPine 10 MG TAB PO SCH (09:00)
[2022-09-09] MEDS ORDERED: ASPIRIN 81 MG PO SCH (09:00)
[2022-09-09] MEDS ORDERED: hydroCHLOROthiazide 25 MG TAB PO SCH (09:00)
[2022-09-09] MEDS ORDERED: FLUoxetine HCL 20 MG CAP PO SCH (09:00)
[2022-09-09 09:03] VITALS: BP 142/63; PULSE 55; RESP 16; TEMP 98.4
[2022-09-09] MEDS: busPIRone HCl 5 MG TAB PO SCH (09:04)
[2022-09-09] MEDS: METOPROLOL TARTRATE 25 MG TAB PO SCH (09:04)
== END 2022-09-09 09:40 | disposition home or self-care (01) ==
LOC: CATHCVL 09:53 → 3SCARD 16:09 → CATHCVL 09-09 09:40
PROVIDERS: ATTEND Internal Medicine Interventional Cardiology
DX: I70.211 Atherosclerosis of native arteries of extremities with intermittent claudication, right leg (principal); I25.10 Atherosclerotic heart disease of native coronary artery without angina pectoris; I65.23 Occlusion and stenosis of bilateral carotid arteries; I11.9 Hypertensive heart disease without heart failure; E78.5 Hyperlipidemia, unspecified; Z95.1 Presence of aortocoronary bypass graft; Z95.5 Presence of coronary angioplasty implant and graft; Z79.1 Long term (current) use of non-steroidal anti-inflammatories (NSAID); Z79.02 Long term (current) use of antithrombotics/antiplatelets; Z79.899 Other long term (current) drug therapy
CPT/HCPCS: 37252; 99152; 99153; 80048 ×2; 85025 ×2; 37227; C1769 ×8; C1894 ×3; C1714; C1725 ×2; C1753; C1874; C1760; C9767; J2250; J2001; J1644; Q9966

== ENCOUNTER 2022-09-29 06:57 | Day surgery (SDC) | payer MEDICARE ==
[2022-09-23 12:32] VITALS: BMI 33.2
[~2022-09-29 06:57] MED LIST changes: -ALPRAZolam 0.5 MG TAB PO PRN
[2022-09-29] MEDS ORDERED: SODIUM CHLORIDE 0.9% 1,000 ML IV ONE (07:25)
[2022-09-29] MEDS ORDERED: LIDOCAINE 1% INJ 10MG/ML (20 ML MDV) ONE (08:33)
[2022-09-29] MEDS ORDERED: MIDAZOLAM 2 MG/2 ML VIAL IV ONE ×2 (10:38→12:42)
[2022-09-29] MEDS ORDERED: LIDOCAINE 1% INJ 10MG/ML (30 ML VIAL-PF) SQ ONE (10:44)
[2022-09-29] MEDS: HEPARIN SODIUM 1,000 UN/ML (10ML VL) IV ONE ×2 (10:50→11:24)
[2022-09-29] MEDS: HEPARIN SODIUM 1,000 UN/ML (10ML VL) ONE ×2 (11:42→12:00)
[2022-09-29] MEDS ORDERED: fentaNYL (PF) 50 MCG/ML 2 ML AMP ONE (11:53)
[2022-09-29] MEDS ORDERED: fentaNYL (PF) 50 MCG/ML 2 ML AMP IV ONE (11:55)
[2022-09-29] MEDS ORDERED: niCARdipine 25 MG/10 ML VIAL ONE (12:15)
[2022-09-29] MEDS ORDERED: HEPARIN SODIUM 1,000 UN/ML (10ML VL) ONE (12:29)
[2022-09-29] MEDS ORDERED: HEPARIN SODIUM 1,000 UN/ML (10ML VL) IV ONE (12:30)
[2022-09-29] MEDS ORDERED: CLOPIDOGREL 75 MG TAB ONE (13:02)
[2022-09-29] MEDS ORDERED: CLOPIDOGREL 75 MG TAB PO ONE (13:03)
[2022-09-29] MEDS ORDERED: IOPAMIDOL-250 100ML BTL INTRAARTER ONE ×2 (13:05)
[2022-09-29] MEDS ORDERED: MELOXICAM 7.5 MG TAB PO PRN (13:35)
[2022-09-29] MEDS ORDERED: NALOXONE 0.4 MG/ML 1 ML VIAL IVP PRN (13:36)
[2022-09-29] MEDS ORDERED: SODIUM CHLORIDE 0.9% 1,000 ML in EMPTY BAG 1 BAG IV SCH (13:45)
[2022-09-29] MEDS ORDERED: NON FORMULARY DRUG (Evolocumab [Repatha Syringe] 140 MG/ML Each) SQ SCH (13:45)
--- NOTE | 2022-09-29 13:47 | P.PCN ---
Date of Procedure: 09/29/22 Operative Findings: PERCUTANEOUS PERIPHERAL INTERVENTION Performing physician Alvaro Gregorio M.D. Procedure performed 1. Successful balloon angioplasty of the left popliteal with adjunctive use of atherectomy 2. Successful balloon angioplasty and stenting of the left SFA with adjunctive use of atherectomy 3. Successful stenting of the left common iliac artery using 9.0 x 29 mm stent with adjunctive use of lithotripsy balloon 4. Intravascular ultrasound of the left popliteal and left SFA and left common iliac artery 5. Left lower extremity angiogram 6. At common femoral artery angiogram and ultrasound guided access of the right common femoral artery Indication The patient is a pleasant 71-year-old gentleman with a past medical history significant for lower extent his PAD was experiencing bilateral lower 70s intermittent claudication. He underwent an angiogram recently and that showed occluded right SFA and subtotally occluded left SFA. He underwent PTCA of the right SFA and he was brought today to undergo a DIESEL ENGINE ERECTOR of the left SFA Approach Right common femoral artery Complications None Level of sedation Moderate with a sedation time of 2 hours and 20 minutes Procedure description After obtaining an informed consent the patient was brought to the cardiac open hearth laborer. Under ultrasound guidance, the right common femoral artery was cannulated using micropuncture technique, the micropuncture wire passed easily then I place d a 6-Kyrgyz 70 cm sheath. I did predilatation the groin using initially 5- Kyrgyz and then 6-Kyrgyz and then 7-Kyrgyz dilator before the sheath was replaced because the groin was quite fibrotic. Subsequently I did selective the left SFA using 035 stiff Glidewire with a backup support of 5-Kyrgyz rim catheter. Attempting advancing the 6-Kyrgyz 70 cm long sheath over the stiff Glidewire and the catheter was unsuccessful because the patient is known to have severe disease involving the left common iliac artery. Attempting changing the rim catheter into multipurpose was unsuccessful. The sheath dilator itself was unsuccessful. Attempting changing the wire into a stiff wire was unsuccessful. Finally I did have to replace the long 6-Kyrgyz sheath into a long 6-Kyrgyz Mateus sheath. With that I was able to get the sheath up and over to the left common femoral artery after I did balloon angioplasty of the left iliac using 6 mm balloon. After that anticoagulation was initiated using heparin with continuous ACT monitoring. Subsequently I did do left lower XRT angiogram which showed three-vessel runoff on the left side with anterior tibial and peroneal and posterior tibial artery. I did wire the left SFA and left popliteal and the wire was advanced to the below the knee on the left side and that was hydrated ST wire. Subsequently intravascular ultrasound was performed and showed extremely calcified and tight lesions involving the left popliteal and left SFA. I did at that point I exchanged my wire into the atherectomy wire using 035 catheters. After that I did atherectomy of the left popliteal and left SFA using 1.5 mm maryellen. After that I did balloon angioplasty of the left popliteal using 5 mm chocolate balloon. Subsequently for the left SFA I did balloon angioplasty using 6 mm noncompliant balloon. Angiogram was performed after that and revealed that the lesion at the left popliteal and the lesion of in-stent restenosis appeared to be good with balloon angioplasty alone. For that reason I did a drug-coated balloon for the left popliteal as well as distal and mid left SFA. For the proximal left SFA there was a dissection appears to be flow-limiting and I decided to stent that. I deployed 7.0 x 1 40 mm stent where the stent was positioned under fluoroscopy guidance and deployed under fluoroscopy guidance and that was Zilver PTX stent. Postdilatation of the stent was performed using 6 mm balloon. Then for the very proximal left SFA I did also drug-coated balloon and that was 6 mm balloon. Final angiogram of the left SFA and left fourth he was performed and showed excellent angiographic results was a grade flow and 3 vessels run off below the knee on the left side. Subsequently I did pull the sheath all the way to the very proximal portion of the left common iliac artery and I did exchange my wire into 014 wire. After that I did intravascular ultrasound again of the left common iliac artery and that showed a diameter about 9 mm. I did balloon angioplasty using 8 mm lithotripsy balloon. After that I deployed 9.0 x 29 mm balloon expandable stent where the stent was positioned under fluoroscopy guidance and deployed under its nominal pressure. After that I did postdilatation using 10 mm balloon. Final angiogram showed excellent angiographic results. After that I did exchange my long sheath into an 11 cm 6-Kyrgyz sheath at the right common femoral artery and then I did selective right common femoral artery angiogram. The procedure was completed was no complication. Postprocedure management 1. Dual antiplatelet therapy 2. Aggressive cholesterol control 3. Risk factors modification 4. Follow-up with the patient
[2022-09-29] MEDS: busPIRone HCl 5 MG TAB PO SCH (21:38)
[2022-09-30] MEDS: busPIRone HCl 5 MG TAB PO SCH (08:05)
[2022-09-30 08:12] VITALS: BP 114/55; PULSE 60; RESP 16; TEMP 97.6
[2022-09-30] MEDS ORDERED: ASPIRIN 81 MG PO SCH (09:00)
[2022-09-30] MEDS ORDERED: amLODIPine 10 MG TAB PO SCH (09:00)
[2022-09-30] MEDS ORDERED: CHOLECALCIFEROL 10 MCG (400 IU) TABLET PO SCH (09:00)
[2022-09-30] MEDS ORDERED: CLOPIDOGREL 75 MG TAB PO SCH (09:00)
[2022-09-30] MEDS ORDERED: hydroCHLOROthiazide 25 MG TAB PO SCH (09:00)
[2022-09-30] MEDS ORDERED: FLUoxetine HCL 20 MG CAP PO SCH (09:00)
[2022-09-30] MEDS ORDERED: ATORVASTATIN 80 MG TAB PO SCH (09:00)
[2022-09-30] MEDS ORDERED: atenoloL 50 MG TAB PO SCH (09:00)
--- NOTE | 2022-09-30 09:24 | P.DS ---
Providers Attending physician: Alvaro Gregorio Primary care physician: [facility] Course: The patient is a 71-year-old gentleman who underwent yesterday successful angioplasty of the left SFA and left iliac with a good angiographic results from right groin approach. He was seen this morning. He is asymptomatic. He is in with an acute stable. The patient is going to be discharged home on dual antiplatelet therapy and statin and I'll follow-up with the patient next week in the office Plan - Discharge Summary Discharge Rx Participant: Yes New Discharge Prescriptions: Continue busPIRone HCL 15 mg PO BID Aspirin [Adult Low Dose Aspirin EC] 81 mg PO DAILY #30 tablet. Clopidogrel [Plavix] 75 mg PO QAM FLUoxetine HCL [PROzac] 40 mg PO DAILY Meloxicam [Mobic] 7.5 mg PO DAILY PRN PRN Reason: Pain Evolocumab [Repatha Syringe] 140 mg SQ DIRECTED Cholecalciferol [Vitamin D3 (10 Mcg = 400 Iu)] 10 mcg PO DAILY hydroCHLOROthiazide 25 mg PO DAILY amLODIPine [Norvasc] 10 mg PO DAILY atenoloL [Tenormin] 50 mg PO DAILY Atorvastatin [Lipitor] 80 mg PO DAILY Discharge Medication List busPIRone HCL 15 mg PO BID 02/16/18 [History] Aspirin [Adult Low Dose Aspirin EC] 81 mg PO DAILY #30 tablet. 03/30/18 [Rx] Clopidogrel [Plavix] 75 mg PO QAM 02/28/19 [History] FLUoxetine HCL [PROzac] 40 mg PO DAILY 02/28/19 [History] hydroCHLOROthiazide 25 mg PO DAILY 08/12/22 [History] Evolocumab [Repatha Syringe] 140 mg SQ DIRECTED 08/17/22 [History] Meloxicam [Mobic] 7.5 mg PO DAILY PRN 08/17/22 [History] amLODIPine [Norvasc] 10 mg PO DAILY 08/17/22 [History] Atorvastatin [Lipitor] 80 mg PO DAILY 09/23/22 [History] Cholecalciferol [Vitamin D3 (10 Mcg = 400 Iu)] 10 mcg PO DAILY 09/23/22 [History] atenoloL [Tenormin] 50 mg PO DAILY 09/23/22 [History] Follow up Appointment(s)/Referral(s): Alvaro Gregorio MD [STAFF PHYSICIAN] - 1 Week
[2022-09-30 09:48] LABS: ALT 20 U/L (4-49); AST 22 U/L (17-59); African American GFR (CKD) >90 (>60 ml/min/1.73 sqM); Albumin 3.1 g/dL (3.5-5.0); Alkaline Phosphatase 111 U/L (38-126); Anion Gap 6 mmol/L; Blood Urea Nitrogen 18 mg/dL (9-20); Calcium 7.7 mg/dL (8.4-10.2); Carbon Dioxide 27 mmol/L (22-30); Chloride 104 mmol/L (98-107); Glucose 84 mg/dL (74-99); Non-African American GFR(CKD) 86 (>60 ml/min/1.73 sqM); Potassium 3.5 mmol/L (3.5-5.1); Sodium 137 mmol/L (137-145); Total Bilirubin 0.5 mg/dL (0.2-1.3); Total Protein 5.5 g/dL (6.3-8.2)
--- NOTE | 2022-09-30 11:47 | IR ---
EXAMINATION TYPE: IR stent intravas non coronary DATE OF EXAM: 09/29/2022 COMPARISON: NONE HISTORY: Fluoroscopy time. Fluoroscopy was provided to the referring clinician.
== END 2022-09-30 09:56 | disposition home health service (06) ==
LOC: CATHCVL 06:57 → 3SCARD 16:00 → CATHCVL 09-30 09:56
PROVIDERS: ATTEND Internal Medicine Interventional Cardiology
DX: I70.212 Atherosclerosis of native arteries of extremities with intermittent claudication, left leg (principal); I25.10 Atherosclerotic heart disease of native coronary artery without angina pectoris; I10 Essential (primary) hypertension; E78.5 Hyperlipidemia, unspecified; I65.23 Occlusion and stenosis of bilateral carotid arteries; Z79.02 Long term (current) use of antithrombotics/antiplatelets; Z79.82 Long term (current) use of aspirin; Z79.899 Other long term (current) drug therapy; Z95.5 Presence of coronary angioplasty implant and graft; Z95.820 Peripheral vascular angioplasty status with implants and grafts; Z95.1 Presence of aortocoronary bypass graft
CPT/HCPCS: 37252; 99152; 99153; 37221; 80053; 84132; C1894 ×2; C1769 ×6; C1714; C1876; C1725 ×3; C2623 ×2; C1874; C9767; J2250; J2001; J3010; J1644; Q9966; 37227

== ENCOUNTER 2023-10-16 06:37 | Inpatient (IN) | payer MEDICARE ==
[2023-10-16 06:40] LABS: Glucose,Whole Blood 198 mg/dL (70-110)
--- NOTE | 2023-10-16 06:49 | ED ---
CPR HPI - General Source: EMS Mode of arrival: EMS <Disha Solorzano - Last Filed: 10/16/23 07:08> <Ney Medina - Last Filed: 10/16/23 09:32> - General Chief Complaint: Cardiac Arrest/CPR Stated Complaint: Cardiac arrest Time Seen by Provider: 10/16/23 06:40 - History of Present Illness Initial Comments: 72-year-old male with past medical history of coronary disease status post bypass who presents emergency department as a ROSC patient. It is reported by EMS that the awoke to the patient having agonal respirations. This was at 5:15 AM. She called EMS. Fire arrived on scene and began CPR. They administered 2 shocks to the patient. EMS arrived on scene and found the patient to have a V. tach rhythm for which she was administered a third defibrillation. Patient was administered 3 epinephrine doses. He had a total downtime of 30 minutes. His blood pressure was reported to be low and therefore he was administered a push dose of epinephrine. It was reported that the patient then began bucking the vent so he was given a dose of ketamine. Patient arrives in the normal sinus rhythm. EMS denies that the patient was complaining of anything prior to going to sleep. They did mention that the patient has had some falls. Remainder of HPI is limited (Disha Solorzano) - Related Data Home Medications Medication Instructions Recorded Confirmed Clopidogrel [Plavix] 75 mg PO DAILY 02/28/19 10/16/23 FLUoxetine HCL [PROzac] 20 mg PO DAILY 02/28/19 10/16/23 hydroCHLOROthiazide 25 mg PO DAILY 08/12/22 10/16/23 Evolocumab [Repatha Syringe] 140 mg SQ Q14D 08/17/22 10/16/23 Atorvastatin [Lipitor] 80 mg PO DAILY 09/23/22 10/16/23 atenoloL [Tenormin] 50 mg PO DAILY 09/23/22 10/16/23 Clotrimazole/Betameth Cream 1 applic TOPICAL BID 10/16/23 10/16/23 [Lotrisone] FLUoxetine HCL [PROzac] 40 mg PO DAILY 10/16/23 10/16/23 Furosemide [Lasix] 40 mg PO DAILY 10/16/23 10/16/23 Potassium Chloride ER [K-Dur 20] 20 meq PO DAILY 10/16/23 10/16/23 amLODIPine [Norvasc] 10 mg PO DAILY 10/16/23 10/16/23 Previous Rx's Medication Instructions Recorded Aspirin [Adult Low Dose Aspirin EC] 81 mg PO DAILY #30 tablet. 03/30/18 Allergies Allergy/AdvReac Type Severity Reaction Status Date / Time Iodinated Contrast Media AdvReac Swelling Verified 09/23/22 11:59 [Iodinated Contrast- Oral and IV Dye] Review of Systems ROS Other: All systems not noted in ROS Statement are negative. <Disha Solorzano - Last Filed: 10/16/23 07:08> ROS Other: All systems not noted in ROS Statement are negative. <Ney Medina - Last Filed: 10/16/23 09:32> ROS Statement: Those systems with pertinent positive or pertinent negative responses have been documented in the HPI. Past Medical History Past Medical History: Coronary Artery Disease (CAD), Hyperlipidemia, Hypertension, Osteoarthritis (OA), Vascular Disorder Additional Past Medical History / Comment(s): PAD, See Cardiology H & P. 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 heart cath with stents (2019) , right leg stent (2018)., 09/08/22 balloon angioplasty with right pap artery stent / atherectomy. Past Anesthesia/Blood Transfusion Reactions: No Reported Reaction Date of Last Stent Placement:: 03/29/18 Past Psychological History: Anxiety, Depression Smoking Status: Former smoker Past Alcohol Use History: None Reported Additional Past Alcohol Use History / Comment(s): Quit smoking 36 years ago. Past Drug Use History: None Reported - Past Family History Mother Family Medical History: Cancer Father Family Medical History: Coronary Artery Disease (CAD) Additional Family Medical History / Comment(s): Father at age 62 from complications from alcohol with history of coronary artery disease. <Disha Solorzano - Last Filed: 10/16/23 07:08> General Exam Limitations: altered mental status, physical limitation Head exam: Present: atraumatic, normocephalic, normal inspection Pupils: Present: other (Pupils are 5 mm and fixed) Respiratory exam: Present: other (Patient vented) Cardiovascular Exam: Present: normal rhythm, bradycardia GI/Abdominal exam: Present: soft, normal bowel sounds. Absent: distended, tenderness, guarding, rebound, rigid Extremities exam: Present: normal inspection, full ROM, normal capillary refill. Absent: tenderness, pedal edema, joint swelling, calf tenderness Neurological exam: Present: altered <Disha Solorzano - Last Filed: 10/16/23 07:08> Course Vital Signs 10/16/23 10/16/23 10/16/23 06:30 06:40 06:57 Temperature 97.1 F L Pulse Rate 62 Respiratory 20 Rate Blood Pressure 109/95 O2 Sat by Pulse 93 L Oximetry Fraction of 100 100 Inspired Oxygen (FIO2) 10/16/23 10/16/23 10/16/23 07:10 07:15 08:08 Temperature 98.8 F Pulse Rate 75 72 Respiratory 18 20 18 Rate Blood Pressure 142/66 155/67 O2 Sat by Pulse 92 L 89 L Oximetry Fraction of Inspired Oxygen (FIO2) 10/16/23 10/16/23 08:24 09:01 Temperature Pulse Rate 69 Respiratory 22 Rate Blood Pressure 152/55 O2 Sat by Pulse 68 L Oximetry Fraction of 100 Inspired Oxygen (FIO2) Procedures - ABG Interpretation Ph: 7.26 PCO2: 60.7 PO2: 85.1 Bicarbonate: 27 Interpretation: metabolic acidosis <Ney Medina - Last Filed: 10/16/23 09:32> Medical Decision Making <Disha Solorzano - Last Filed: 10/16/23 07:08> - Lab Data Result diagrams: 10/16/23 06:43 10/16/23 06:43 <Ney Medina - Last Filed: 10/16/23 09:32> - Medical Decision Making Was pt. sent in by a medical professional or institution (, PA, GAMEMASTER, urgent care, hospital, or skilled nursing...) When possible be specific @ -No Did you speak to anyone other than the patient for history (EMS, parent, family, police, friend...)? What history was obtained from this source @ -Spoke with EMS Did you review nursing and triage notes (agree or disagree)? Why? @ -I reviewed and agree with nursing and triage notes Were old charts reviewed (outside hosp., previous admission, EMS record, old EKG, old radiological studies, urgent care reports/EKG's, skilled nursing records)? Report findings @ -No old charts were reviewed Differential Diagnosis (chest pain, altered mental status, abdominal pain women, abdominal pain men, vaginal bleeding, weakness, fever, dyspnea, syncope, headache, dizziness, GI bleed, back pain, seizure, CVA, palpatations, mental health, musculoskeletal)? @ -Not applicable EKG interpreted by me (3pts min.). @ -Yes and demonstrates significant baseline artifact. Rate of 60. AK interval 204. QRS 110. QTc of 455. ST depression V2 V3. No acute ST segment elevation Repeat at 645 continues to demonstrate baseline artifact with some ST depression in V2 and V3. No acute ST segment elevation. Rate of 63 X-rays interpreted by me (1pt min.). @ -Yes and demonstrates adequate placement of the ET tube. ET tube is 20 cm at the lip CT interpreted by me (1pt min.). @ -Ordered and pending U/S interpreted by me (1pt. min.). @ -None done What testing was considered but not performed or refused? (CT, X-rays, U/S, labs)? Why? @ -None What meds were considered but not given or refused? Why? @ -None Did you discuss the management of the patient with other professionals (professionals i.e. , PA, GAMEMASTER, lab, RT, psych nurse, neonatal social worker, buffing wheel inspector, teacher, health officer, block and case maker)? Give summary @ -Spoke with Dr. Medina will take over care of this patient Was smoking cessation discussed for >3mins.? @ -No Was critical care preformed (if so, how long)? @ -No Were there social determinants of health that impacted care today? How? (Homelessness, low income, unemployed, alcoholism, drug addiction, transportation, low edu. Level, literacy, decrease access to med. care, halfway, rehab)? @ -No Was there de-escalation of care discussed even if they declined (Discuss DNR or withdrawal of care, Hospice)? DNR status @ -No What co-morbidities impacted this encounter? (DM, HTN, Smoking, COPD, CAD, Cancer, CVA, ARF, Chemo, Hep., AIDS, mental health diagnosis, sleep apnea, morbid obesity)? @ -Coronary disease status post CABG Was patient admitted / discharged? Hospital course, mention meds given and route, prescriptions, significant lab abnormalities, going to OR and other pertinent info. @ -Upon arrival patient was placed into trauma 2. He is hooked to continuous pulse ox and cardiac monitoring. Propofol is initiated as patient does have clonic jerking. Portable chest x-ray was performed. CT of the brain is ordered. Laboratory studies are pending. Patient be signed out to Dr. Medina for further management Undiagnosed new problem with uncertain prognosis? @ -Yes Drug Therapy requiring intensive monitoring for toxicity (Heparin, Nitro, Insulin, Cardizem)? @ -Yes, propofol, amnio Were any procedures done? @ -No Diagnosis/symptom? @ -Acute cardiac arrest status post ROSC, V. tach Acute, or Chronic, or Acute on Chronic? @ -Acute Uncomplicated (without systemic symptoms) or Complicated (systemic symptoms)? @ -Complicated Side effects of treatment? @ -No Exacerbation, Progression, or Severe Exacerbation? @ -No Poses a threat to life or bodily function? How? (Chest pain, [place], [place], pneumonia, PE, COPD, DKA, ARF, appy, cholecystitis, CVA, Diverticulitis, Homicidal, Suicidal, threat to staff... and all critical care pts) @ -Yes, patient (Disha Solorzano) There is concern for sepsis diagnosed at 7:38 AM. Blood culture IV fluids and lactic acid have all been ordered. Patient has received fluid bolus of 2250 cc based off ideal body weight of 75.2 kg Patient again reevaluated. Blood patient remained stable. Family present and updated. Case was discussed with Dr. James who will admit covering Dr. Nelson, time Case also discussed with Dr. Schneider who did come evaluate patient. Admission orders written. Diagnosis: Pneumonia, sepsis, V. tach, respiratory failure Acute, acute, acute, acute Heparin will be started secondary to elevated troponin Total critical care time 31 minutes. Chest x-ray interpreted by myself shows right upper lobe infiltrate. Endotracheal tube in place. CT scan of the brain has concern for some early anoxic injury also interpreted by myself (Ney Medina) - Lab Data Lab Results 03/31/24 03/31/24 03/31/24 Range/Units 06:38 06:43 06:43 WBC 16.1 H (3.8-10.6) k/uL RBC 3.70 L (4.30-5.90) m/uL Hgb 11.1 L (13.0-17.5) gm/dL Hct 35.6 L (39.0-53.0) % MCV 96.2 (80.0-100.0) fL MCH 30.1 (25.0-35.0) pg MCHC 31.3 (31.0-37.0) g/dL RDW 13.9 (11.5-15.5) % Plt Count 345 (150-450) k/uL MPV 7.7 Neutrophils % 87 % Lymphocytes % 8 % Monocytes % 3 % Eosinophils % 1 % Basophils % 0 % Neutrophils # 14.0 H (1.3-7.7) k/uL Lymphocytes # 1.3 (1.0-4.8) k/uL Monocytes # 0.4 (0-1.0) k/uL Eosinophils # 0.2 (0-0.7) k/uL Basophils # 0.1 (0-0.2) k/uL Hypochromasia Slight PT 13.1 H (10.0-12.5) sec INR 1.2 H (<1.2) APTT 27.5 (22.0-30.0) sec Sample Site ABG pH (7.35-7.45) ABG pCO2 (35-45) mmHg ABG pO2 (83-108) mmHg ABG HCO3 (21-25) mmol/L ABG Total CO2 (19-24) mmol/L ABG O2 Saturation (94-97) % ABG Base Excess mmol/L Yakov Test FiO2 % Sodium (137-145) mmol/L Potassium (3.5-5.1) mmol/L Chloride (98-107) mmol/L Carbon Dioxide (22-30) mmol/L Anion Gap mmol/L BUN (9-20) mg/dL Creatinine (0.66-1.25) mg/dL Est GFR (CKD-EPI)AfAm (>60 ml/min/1.73 sqM) Est GFR (CKD-EPI)NonAf (>60 ml/min/1.73 sqM) Glucose (74-99) mg/dL POC Glucose (mg/dL) 198 H (70-110) mg/dL POC Glu Plumbing And Heating Mechanic Gopi Davidson Plasma Lactic Acid Obed (0.7-2.0) mmol/L Calcium (8.4-10.2) mg/dL Magnesium (1.6-2.3) mg/dL Total Bilirubin (0.2-1.3) mg/dL AST (17-59) U/L ALT (4-49) U/L Alkaline Phosphatase (38-126) U/L Troponin I (0.000-0.034) ng/mL NT-Pro-B Natriuret Pep pg/mL Total Protein (6.3-8.2) g/dL Albumin (3.5-5.0) g/dL Urine Color Urine Appearance (Clear) Urine pH (5.0-8.0) Ur Specific Boyle (1.001-1.035) Urine Protein (Negative) Urine Glucose (UA) (Negative) Urine Ketones (Negative) Urine Blood (Negative) Urine Nitrite (Negative) Urine Bilirubin (Negative) Urine Urobilinogen (<2.0) mg/dL Ur Leukocyte Esterase (Negative) Urine RBC (0-5) /hpf Urine WBC (0-5) /hpf Urine WBC Clumps (None) /hpf Ur Squamous Epith Cells (0-4) /hpf Urine Bacteria (None) /hpf Hyaline Casts (0-2) /lpf Urine Mucus (None) /hpf Influenza Type A (PCR) (Not Detectd) Influenza Type B (PCR) (Not Detectd) RSV (PCR) (Not Detectd) SARS-CoV-2 (PCR) (Not Detectd) 10/16/23 10/16/23 10/16/23 Range/Units 06:43 06:43 06:43 WBC (3.8-10.6) k/uL RBC (4.30-5.90) m/uL Hgb (13.0-17.5) gm/dL Hct (39.0-53.0) % MCV (80.0-100.0) fL MCH (25.0-35.0) pg MCHC (31.0-37.0) g/dL RDW (11.5-15.5) % Plt Count (150-450) k/uL MPV Neutrophils % % Lymphocytes % % Monocytes % % Eosinophils % % Basophils % % Neutrophils # (1.3-7.7) k/uL Lymphocytes # (1.0-4.8) k/uL Monocytes # (0-1.0) k/uL Eosinophils # (0-0.7) k/uL Basophils # (0-0.2) k/uL Hypochromasia PT (10.0-12.5) sec INR (<1.2) APTT (22.0-30.0) sec Sample Site ABG pH (7.35-7.45) ABG pCO2 (35-45) mmHg ABG pO2 (83-108) mmHg ABG HCO3 (21-25) mmol/L ABG Total CO2 (19-24) mmol/L ABG O2 Saturation (94-97) % ABG Base Excess mmol/L Yakov Test FiO2 % Sodium 134 L (137-145) mmol/L Potassium 2.9 L (3.5-5.1) mmol/L Chloride 99 (98-107) mmol/L Carbon Dioxide 22 (22-30) mmol/L Anion Gap 13 mmol/L BUN 18 (9-20) mg/dL Creatinine 1.21 (0.66-1.25) mg/dL Est GFR (CKD-EPI)AfAm 69 (>60 ml/min/1.73 sqM) Est GFR (CKD-EPI)NonAf 59 (>60 ml/min/1.73 sqM) Glucose 193 H (74-99) mg/dL POC Glucose (mg/dL) (70-110) mg/dL POC Glu Plumbing And Heating Mechanic ID Plasma Lactic Acid Obed 7.0 H* (0.7-2.0) mmol/L Calcium 7.2 L (8.4-10.2) mg/dL Magnesium 1.9 (1.6-2.3) mg/dL Total Bilirubin 0.9 (0.2-1.3) mg/dL AST 80 H (17-59) U/L ALT 37 (4-49) U/L Alkaline Phosphatase 333 H (38-126) U/L Troponin I 0.116 H* (0.000-0.034) ng/mL NT-Pro-B Natriuret Pep 4730 pg/mL Total Protein 5.5 L (6.3-8.2) g/dL Albumin 2.6 L (3.5-5.0) g/dL Urine Color Urine Appearance (Clear) Urine pH (5.0-8.0) Ur Specific Boyle (1.001-1.035) Urine Protein (Negative) Urine Glucose (UA) (Negative) Urine Ketones (Negative) Urine Blood (Negative) Urine Nitrite (Negative) Urine Bilirubin (Negative) Urine Urobilinogen (<2.0) mg/dL Ur Leukocyte Esterase (Negative) Urine RBC (0-5) /hpf Urine WBC (0-5) /hpf Urine WBC Clumps (None) /hpf Ur Squamous Epith Cells (0-4) /hpf Urine Bacteria (None) /hpf Hyaline Casts (0-2) /lpf Urine Mucus (None) /hpf Influenza Type A (PCR) (Not Detectd) Influenza Type B (PCR) (Not Detectd) RSV (PCR) (Not Detectd) SARS-CoV-2 (PCR) (Not Detectd) 10/16/23 10/16/23 10/16/23 Range/Units 06:54 07:24 07:34 WBC (3.8-10.6) k/uL RBC (4.30-5.90) m/uL Hgb (13.0-17.5) gm/dL Hct (39.0-53.0) % MCV (80.0-100.0) fL MCH (25.0-35.0) pg MCHC (31.0-37.0) g/dL RDW (11.5-15.5) % Plt Count (150-450) k/uL MPV Neutrophils % % Lymphocytes % % Monocytes % % Eosinophils % % Basophils % % Neutrophils # (1.3-7.7) k/uL Lymphocytes # (1.0-4.8) k/uL Monocytes # (0-1.0) k/uL Eosinophils # (0-0.7) k/uL Basophils # (0-0.2) k/uL Hypochromasia PT (10.0-12.5) sec INR (<1.2) APTT (22.0-30.0) sec Sample Site rrad ABG pH 7.26 L (7.35-7.45) ABG pCO2 61 H (35-45) mmHg ABG pO2 85 (83-108) mmHg ABG HCO3 27 H (21-25) mmol/L ABG Total CO2 29 H (19-24) mmol/L ABG O2 Saturation 93.2 L (94-97) % ABG Base Excess -0.1 mmol/L Yakov Test Yes FiO2 100 % Sodium (137-145) mmol/L Potassium (3.5-5.1) mmol/L Chloride (98-107) mmol/L Carbon Dioxide (22-30) mmol/L Anion Gap mmol/L BUN (9-20) mg/dL Creatinine (0.66-1.25) mg/dL Est GFR (CKD-EPI)AfAm (>60 ml/min/1.73 sqM) Est GFR (CKD-EPI)NonAf (>60 ml/min/1.73 sqM) Glucose (74-99) mg/dL POC Glucose (mg/dL) (70-110) mg/dL POC Glu Plumbing And Heating Mechanic ID Plasma Lactic Acid Obed (0.7-2.0) mmol/L Calcium (8.4-10.2) mg/dL Magnesium (1.6-2.3) mg/dL Total Bilirubin (0.2-1.3) mg/dL AST (17-59) U/L ALT (4-49) U/L Alkaline Phosphatase (38-126) U/L Troponin I (0.000-0.034) ng/mL NT-Pro-B Natriuret Pep pg/mL Total Protein (6.3-8.2) g/dL Albumin (3.5-5.0) g/dL Urine Color Colorless Urine Appearance Clear (Clear) Urine pH 7.5 (5.0-8.0) Ur Specific Boyle 1.007 (1.001-1.035) Urine Protein Negative (Negative) Urine Glucose (UA) Negative (Negative) Urine Ketones Negative (Negative) Urine Blood Negative (Negative) Urine Nitrite Negative (Negative) Urine Bilirubin Negative (Negative) Urine Urobilinogen <2.0 (<2.0) mg/dL Ur Leukocyte Esterase Moderate H (Negative) Urine RBC 1 (0-5) /hpf Urine WBC 42 H (0-5) /hpf Urine WBC Clumps Rare H (None) /hpf Ur Squamous Epith Cells <1 (0-4) /hpf Urine Bacteria Rare H (None) /hpf Hyaline Casts 3 H (0-2) /lpf Urine Mucus Rare H (None) /hpf Influenza Type A (PCR) Not Detected (Not Detectd) Influenza Type B (PCR) Not Detected (Not Detectd) RSV (PCR) Not Detected (Not Detectd) SARS-CoV-2 (PCR) Not Detected (Not Detectd) Critical Care Time Critical Care Time: Yes Total Critical Care Time: 31 <Ney Medina - Last Filed: 10/16/23 09:32> Disposition <Disha Solorzano - Last Filed: 10/16/23 07:08> Is patient prescribed a controlled substance at d/c from ED?: No Time of Disposition: 09:32 <Ney Medina - Last Filed: 10/16/23 09:32> Clinical Impression: Cardiac arrest Disposition: ADMITTED IP TO THIS [facility] Condition: Critical Referrals: Uri Nelson MD [Primary Care Provider] - 1-2 days
[2023-10-16 07:15] LABS: Appearance,Urine Clear (Clear); Bacteria,Urine Rare /hpf; Bilirubin,Urine Negative (Negative); Blood,Urine Negative (Negative); Color,Urine Colorless; Glucose,Urine (UA) Negative (Negative); Hyaline Casts,Urine 3 /lpf (0-2); Ketones,Urine Negative (Negative); Leukocyte Esterase,Urine Moderate (Negative); Mucus,Urine Rare /hpf; Nitrite,Urine Negative (Negative); PH, Urine 7.5 (5.0-8.0); Protein,Urine Negative (Negative); RBC,Urine 1 /hpf (0-5); Specific Gravity,Urine 1.007 (1.001-1.035); Squamous Epithelial Cell,Urine <1 /hpf (0-4); Urobilinogen,Urine <2.0 mg/dL (<2.0); WBC,Urine 42 /hpf (0-5)
[2023-10-16 07:16] LABS: Basophils # (A) 0.1 k/uL (0-0.2); Basophils % (A) 0 %; Eosinophils # (A) 0.2 k/uL (0-0.7); Eosinophils % (A) 1 %; HCT 35.6 % (39.0-53.0); HGB 11.1 gm/dL (13.0-17.5); Hypochromasia Slight; Lymphocytes # (A) 1.3 k/uL (1.0-4.8); Lymphocytes % (A) 8 %; MCH 30.1 pg (25.0-35.0); MCHC 31.3 g/dL (31.0-37.0); MCV 96.2 fL (80.0-100.0); Mean Platelet Volume 7.7; Monocytes # (A) 0.4 k/uL (0-1.0); Monocytes % (A) 3 %; Neutrophils % (A) 87 %; Platelet Count 345 k/uL (150-450); RDW 13.9 % (11.5-15.5); WBC 16.1 k/uL (3.8-10.6)
[2023-10-16 07:20] LABS: ALT 37 U/L (4-49); AST 80 U/L (17-59); African American GFR (CKD) 69 (>60 ml/min/1.73 sqM); Albumin 2.6 g/dL (3.5-5.0); Alkaline Phosphatase 333 U/L (38-126); Anion Gap 13 mmol/L; Blood Urea Nitrogen 18 mg/dL (9-20); Calcium 7.2 mg/dL (8.4-10.2); Carbon Dioxide 22 mmol/L (22-30); Chloride 99 mmol/L (98-107); Glucose 193 mg/dL (74-99); Magnesium 1.9 mg/dL (1.6-2.3); Non-African American GFR(CKD) 59 (>60 ml/min/1.73 sqM); Potassium 2.9 mmol/L (3.5-5.1); Sodium 134 mmol/L (137-145); Total Bilirubin 0.9 mg/dL (0.2-1.3); Total Protein 5.5 g/dL (6.3-8.2)
[2023-10-16 07:27] LABS: INR 1.2 (<1.2); Partial Thromboplastin Time 27.5 sec (22.0-30.0); Prothrombin Time 13.1 sec (10.0-12.5)
[2023-10-16] MEDS: SODIUM CHLORIDE 0.9% 1,000 ML IV STA ×3 (07:27→08:05)
[2023-10-16] MEDS: DEXTROSE 5% IN WATER 100 ML with AMIODARONE 150 MG IV ONE (07:28)
[2023-10-16 07:29] LABS: NT-Pro-B-Type Natriuretic Pept 4730 pg/mL
[2023-10-16 07:36] LABS: ABG Base Excess -0.1 mmol/L; ABG HCO3 27 mmol/L (21-25); ABG Oxygen Saturation 93.2 % (94-97); ABG PCO2 61 mmHg (35-45); ABG PH 7.26 (7.35-7.45); ABG PO2 85 mmHg (83-108); ABG TCO2 29 mmol/L (19-24); Allen Test Performed? Yes
[2023-10-16] MEDS: cefTRIAXone IN SWFI 1,000 MG/10 ML SYRINGE IVP STA (07:42)
--- NOTE | 2023-10-16 07:42 | XR ---
EXAMINATION TYPE: XR chest 1V portable DATE OF EXAM: 10/16/2023 COMPARISON: None INDICATION: Post line placement TECHNIQUE: Single frontal view of the chest is obtained. FINDINGS: The heart size is normal. The pulmonary vasculature is normal. There is a right upper lobe infiltrate. Correlate for pneumonia. Some patchy scattered infiltrate is present at the left base. Correlate for atelectasis and pneumonia. There is placement of an endotracheal tube. The silas is very difficult identified. Best estimate is the tip is 6.6 cm above the silas. IMPRESSION: 1. Right upper and milder left lower lobe infiltrate. Correlate for pneumonia. 2. Endotracheal tube tip appears above the silas.
[2023-10-16] MEDS: SODIUM CHLORIDE 0.9% 250 ML IV STA (07:44)
[2023-10-16] MEDS: POTASSIUM CHLORIDE 20 MEQ in WATER FOR INJECTION 1 100ML.BAG IVPB STA (08:02)
--- NOTE | 2023-10-16 08:54 | CT ---
EXAMINATION TYPE: CT brain wo con DATE OF EXAM: 10/16/2023 COMPARISON: None INDICATION: s/p cardiac arrest DLP: 1201.4 mGycm, Automated exposure control for dose reduction was used. CONTRAST: None CT of the brain is performed utilizing 3 mm thick sections through the posterior fossa and 3 mm thick sections through the remaining calvarium. Study is performed within 24 hours of arrival to the hosp ital. No abnormal hyperdensity is present to suggest an acute intracranial hemorrhage. No mass lesion is evident. No acute infarcts are evident. Whitaker-white matter differentiation is limited. Early anoxic injury shou ld be considered. Ventricles and sulci are appropriate for the patient age. No shift of the brain is evident. Paranasal sinuses and mastoid air cells within the [id number] are clear. Patient is intubated and nasogastric tube. Distal tips are out of the [id number] IMPRESSION: 1. There is poor differentiation of the whitaker-white matter suggesting early anoxic injury.
[2023-10-16] MEDS: AMIODARONE 360 MG in DEXTROSE 5% IN WATER 200 ML IV ONE (08:58)
[2023-10-16] MEDS ORDERED: IPRATROPIUM-ALBUTEROL 3 ML NEB INHALATION PRN (09:33)
[2023-10-16] MEDS ORDERED: PNEUMONIA PROTOCOL UTILIZED 1 EACH MISC PO PRN (09:33)
--- NOTE | 2023-10-16 09:43 | ED ---
Medical Decision Making - Medical Decision Making Cardiology was paged for consultation - Lab Data Result diagrams: 10/16/23 06:43 10/16/23 06:43 Lab Results 10/16/23 10/16/23 10/16/23 Range/Units 06:38 06:43 06:43 WBC 16.1 H (3.8-10.6) k/uL RBC 3.70 L (4.30-5.90) m/uL Hgb 11.1 L (13.0-17.5) gm/dL Hct 35.6 L (39.0-53.0) % MCV 96.2 (80.0-100.0) fL MCH 30.1 (25.0-35.0) pg MCHC 31.3 (31.0-37.0) g/dL RDW 13.9 (11.5-15.5) % Plt Count 345 (150-450) k/uL MPV 7.7 Neutrophils % 87 % Lymphocytes % 8 % Monocytes % 3 % Eosinophils % 1 % Basophils % 0 % Neutrophils # 14.0 H (1.3-7.7) k/uL Lymphocytes # 1.3 (1.0-4.8) k/uL Monocytes # 0.4 (0-1.0) k/uL Eosinophils # 0.2 (0-0.7) k/uL Basophils # 0.1 (0-0.2) k/uL Hypochromasia Slight PT 13.1 H (10.0-12.5) sec INR 1.2 H (<1.2) APTT 27.5 (22.0-30.0) sec Sample Site ABG pH (7.35-7.45) ABG pCO2 (35-45) mmHg ABG pO2 (83-108) mmHg ABG HCO3 (21-25) mmol/L ABG Total CO2 (19-24) mmol/L ABG O2 Saturation (94-97) % ABG Base Excess mmol/L Yakov Test FiO2 % Sodium (137-145) mmol/L Potassium (3.5-5.1) mmol/L Chloride (98-107) mmol/L Carbon Dioxide (22-30) mmol/L Anion Gap mmol/L BUN (9-20) mg/dL Creatinine (0.66-1.25) mg/dL Est GFR (CKD-EPI)AfAm (>60 ml/min/1.73 sqM) Est GFR (CKD-EPI)NonAf (>60 ml/min/1.73 sqM) Glucose (74-99) mg/dL POC Glucose (mg/dL) 198 H (70-110) mg/dL POC Glu Cnc Supervisor ID Gopi Medina Lactic Ac Sepsis Rflx Plasma Lactic Acid Obed (0.7-2.0) mmol/L Calcium (8.4-10.2) mg/dL Magnesium (1.6-2.3) mg/dL Total Bilirubin (0.2-1.3) mg/dL AST (17-59) U/L ALT (4-49) U/L Alkaline Phosphatase (38-126) U/L Troponin I (0.000-0.034) ng/mL NT-Pro-B Natriuret Pep pg/mL Total Protein (6.3-8.2) g/dL Albumin (3.5-5.0) g/dL Urine Color Urine Appearance (Clear) Urine pH (5.0-8.0) Ur Specific [place] (1.001-1.035) Urine Protein (Negative) Urine Glucose (UA) (Negative) Urine Ketones (Negative) Urine Blood (Negative) Urine Nitrite (Negative) Urine Bilirubin (Negative) Urine Urobilinogen (<2.0) mg/dL Ur Leukocyte Esterase (Negative) Urine RBC (0-5) /hpf Urine WBC (0-5) /hpf Urine WBC Clumps (None) /hpf Ur Squamous Epith Cells (0-4) /hpf Urine Bacteria (None) /hpf Hyaline Casts (0-2) /lpf Urine Mucus (None) /hpf Influenza Type A (PCR) (Not Detectd) Influenza Type B (PCR) (Not Detectd) RSV (PCR) (Not Detectd) SARS-CoV-2 (PCR) (Not Detectd) 10/16/23 10/16/23 10/16/23 Range/Units 06:43 06:43 06:43 WBC (3.8-10.6) k/uL RBC (4.30-5.90) m/uL Hgb (13.0-17.5) gm/dL Hct (39.0-53.0) % MCV (80.0-100.0) fL MCH (25.0-35.0) pg MCHC (31.0-37.0) g/dL RDW (11.5-15.5) % Plt Count (150-450) k/uL MPV Neutrophils % % Lymphocytes % % Monocytes % % Eosinophils % % Basophils % % Neutrophils # (1.3-7.7) k/uL Lymphocytes # (1.0-4.8) k/uL Monocytes # (0-1.0) k/uL Eosinophils # (0-0.7) k/uL Basophils # (0-0.2) k/uL Hypochromasia PT (10.0-12.5) sec INR (<1.2) APTT (22.0-30.0) sec Sample Site ABG pH (7.35-7.45) ABG pCO2 (35-45) mmHg ABG pO2 (83-108) mmHg ABG HCO3 (21-25) mmol/L ABG Total CO2 (19-24) mmol/L ABG O2 Saturation (94-97) % ABG Base Excess mmol/L Yakov Test FiO2 % Sodium 134 L (137-145) mmol/L Potassium 2.9 L (3.5-5.1) mmol/L Chloride 99 (98-107) mmol/L Carbon Dioxide 22 (22-30) mmol/L Anion Gap 13 mmol/L BUN 18 (9-20) mg/dL Creatinine 1.21 (0.66-1.25) mg/dL Est GFR (CKD-EPI)AfAm 69 (>60 ml/min/1.73 sqM) Est GFR (CKD-EPI)NonAf 59 (>60 ml/min/1.73 sqM) Glucose 193 H (74-99) mg/dL POC Glucose (mg/dL) (70-110) mg/dL POC Glu Cnc Supervisor ID Lactic Ac Sepsis Rflx Plasma Lactic Acid Obed 7.0 H* (0.7-2.0) mmol/L Calcium 7.2 L (8.4-10.2) mg/dL Magnesium 1.9 (1.6-2.3) mg/dL Total Bilirubin 0.9 (0.2-1.3) mg/dL AST 80 H (17-59) U/L ALT 37 (4-49) U/L Alkaline Phosphatase 333 H (38-126) U/L Troponin I 0.116 H* (0.000-0.034) ng/mL NT-Pro-B Natriuret Pep 4730 pg/mL Total Protein 5.5 L (6.3-8.2) g/dL Albumin 2.6 L (3.5-5.0) g/dL Urine Color Urine Appearance (Clear) Urine pH (5.0-8.0) Ur Specific [place] (1.001-1.035) Urine Protein (Negative) Urine Glucose (UA) (Negative) Urine Ketones (Negative) Urine Blood (Negative) Urine Nitrite (Negative) Urine Bilirubin (Negative) Urine Urobilinogen (<2.0) mg/dL Ur Leukocyte Esterase (Negative) Urine RBC (0-5) /hpf Urine WBC (0-5) /hpf Urine WBC Clumps (None) /hpf Ur Squamous Epith Cells (0-4) /hpf Urine Bacteria (None) /hpf Hyaline Casts (0-2) /lpf Urine Mucus (None) /hpf Influenza Type A (PCR) (Not Detectd) Influenza Type B (PCR) (Not Detectd) RSV (PCR) (Not Detectd) SARS-CoV-2 (PCR) (Not Detectd) 10/16/23 10/16/23 10/16/23 Range/Units 06:54 07:24 07:33 WBC (3.8-10.6) k/uL RBC (4.30-5.90) m/uL Hgb (13.0-17.5) gm/dL Hct (39.0-53.0) % MCV (80.0-100.0) fL MCH (25.0-35.0) pg MCHC (31.0-37.0) g/dL RDW (11.5-15.5) % Plt Count (150-450) k/uL MPV Neutrophils % % Lymphocytes % % Monocytes % % Eosinophils % % Basophils % % Neutrophils # (1.3-7.7) k/uL Lymphocytes # (1.0-4.8) k/uL Monocytes # (0-1.0) k/uL Eosinophils # (0-0.7) k/uL Basophils # (0-0.2) k/uL Hypochromasia PT (10.0-12.5) sec INR (<1.2) APTT (22.0-30.0) sec Sample Site ABG pH (7.35-7.45) ABG pCO2 (35-45) mmHg ABG pO2 (83-108) mmHg ABG HCO3 (21-25) mmol/L ABG Total CO2 (19-24) mmol/L ABG O2 Saturation (94-97) % ABG Base Excess mmol/L Yakov Test FiO2 % Sodium (137-145) mmol/L Potassium (3.5-5.1) mmol/L Chloride (98-107) mmol/L Carbon Dioxide (22-30) mmol/L Anion Gap mmol/L BUN (9-20) mg/dL Creatinine (0.66-1.25) mg/dL Est GFR (CKD-EPI)AfAm (>60 ml/min/1.73 sqM) Est GFR (CKD-EPI)NonAf (>60 ml/min/1.73 sqM) Glucose (74-99) mg/dL POC Glucose (mg/dL) (70-110) mg/dL POC Glu Cnc Supervisor ID Lactic Ac Sepsis Rflx Y Plasma Lactic Acid Obed (0.7-2.0) mmol/L Calcium (8.4-10.2) mg/dL Magnesium (1.6-2.3) mg/dL Total Bilirubin (0.2-1.3) mg/dL AST (17-59) U/L ALT (4-49) U/L Alkaline Phosphatase (38-126) U/L Troponin I (0.000-0.034) ng/mL NT-Pro-B Natriuret Pep pg/mL Total Protein (6.3-8.2) g/dL Albumin (3.5-5.0) g/dL Urine Color Colorless Urine Appearance Clear (Clear) Urine pH 7.5 (5.0-8.0) Ur Specific [place] 1.007 (1.001-1.035) Urine Protein Negative (Negative) Urine Glucose (UA) Negative (Negative) Urine Ketones Negative (Negative) Urine Blood Negative (Negative) Urine Nitrite Negative (Negative) Urine Bilirubin Negative (Negative) Urine Urobilinogen <2.0 (<2.0) mg/dL Ur Leukocyte Esterase Moderate H (Negative) Urine RBC 1 (0-5) /hpf Urine WBC 42 H (0-5) /hpf Urine WBC Clumps Rare H (None) /hpf Ur Squamous Epith Cells <1 (0-4) /hpf Urine Bacteria Rare H (None) /hpf Hyaline Casts 3 H (0-2) /lpf Urine Mucus Rare H (None) /hpf Influenza Type A (PCR) Not Detected (Not Detectd) Influenza Type B (PCR) Not Detected (Not Detectd) RSV (PCR) Not Detected (Not Detectd) SARS-CoV-2 (PCR) Not Detected (Not Detectd) 10/16/23 Range/Units 07:34 WBC (3.8-10.6) k/uL RBC (4.30-5.90) m/uL Hgb (13.0-17.5) gm/dL Hct (39.0-53.0) % MCV (80.0-100.0) fL MCH (25.0-35.0) pg MCHC (31.0-37.0) g/dL RDW (11.5-15.5) % Plt Count (150-450) k/uL MPV Neutrophils % % Lymphocytes % % Monocytes % % Eosinophils % % Basophils % % Neutrophils # (1.3-7.7) k/uL Lymphocytes # (1.0-4.8) k/uL Monocytes # (0-1.0) k/uL Eosinophils # (0-0.7) k/uL Basophils # (0-0.2) k/uL Hypochromasia PT (10.0-12.5) sec INR (<1.2) APTT (22.0-30.0) sec Sample Site rrad ABG pH 7.26 L (7.35-7.45) ABG pCO2 61 H (35-45) mmHg ABG pO2 85 (83-108) mmHg ABG HCO3 27 H (21-25) mmol/L ABG Total CO2 29 H (19-24) mmol/L ABG O2 Saturation 93.2 L (94-97) % ABG Base Excess -0.1 mmol/L Yakov Test Yes FiO2 100 % Sodium (137-145) mmol/L Potassium (3.5-5.1) mmol/L Chloride (98-107) mmol/L Carbon Dioxide (22-30) mmol/L Anion Gap mmol/L BUN (9-20) mg/dL Creatinine (0.66-1.25) mg/dL Est GFR (CKD-EPI)AfAm (>60 ml/min/1.73 sqM) Est GFR (CKD-EPI)NonAf (>60 ml/min/1.73 sqM) Glucose (74-99) mg/dL POC Glucose (mg/dL) (70-110) mg/dL POC Glu Cnc Supervisor ID Lactic Ac Sepsis Rflx Plasma Lactic Acid Obed (0.7-2.0) mmol/L Calcium (8.4-10.2) mg/dL Magnesium (1.6-2.3) mg/dL Total Bilirubin (0.2-1.3) mg/dL AST (17-59) U/L ALT (4-49) U/L Alkaline Phosphatase (38-126) U/L Troponin I (0.000-0.034) ng/mL NT-Pro-B Natriuret Pep pg/mL Total Protein (6.3-8.2) g/dL Albumin (3.5-5.0) g/dL Urine Color Urine Appearance (Clear) Urine pH (5.0-8.0) Ur Specific [place] (1.001-1.035) Urine Protein (Negative) Urine Glucose (UA) (Negative) Urine Ketones (Negative) Urine Blood (Negative) Urine Nitrite (Negative) Urine Bilirubin (Negative) Urine Urobilinogen (<2.0) mg/dL Ur Leukocyte Esterase (Negative) Urine RBC (0-5) /hpf Urine WBC (0-5) /hpf Urine WBC Clumps (None) /hpf Ur Squamous Epith Cells (0-4) /hpf Urine Bacteria (None) /hpf Hyaline Casts (0-2) /lpf Urine Mucus (None) /hpf Influenza Type A (PCR) (Not Detectd) Influenza Type B (PCR) (Not Detectd) RSV (PCR) (Not Detectd) SARS-CoV-2 (PCR) (Not Detectd) Disposition Clinical Impression: Cardiac arrest Disposition: ADMITTED IP TO THIS HOSP Condition: Critical Is patient prescribed a controlled substance at d/c from ED?: No Procedures - Sepsis Sepsis Focused Exam #1 Time Sepsis Criteria Met: 07:38 Sepsis Focused Exam Date: 10/16/23 Sepsis Focused Exam Time: 09:43 Sepsis Focused Exam Complete: Yes Vital Signs & RN Notes Reviewed: Yes Capillary Refill: < 2 Seconds: Fingers, Toes Peripheral Pulses: Normal: Radial (R), Radial (L) Skin Color: Normal for Patient Respiratory Exam: rales Cardiovascular Exam: regular rate, normal rhythm
[2023-10-16] MEDS: HEPARIN SODIUM 1,000 UN/ML (10ML VL) IV ONE (10:08)
[2023-10-16] MEDS: HEPARIN SOD,PORK IN 0.45% NACL 25,000 UNIT in 0.45% NACL 1 250ML.BAG IV SCH (10:08)
[2023-10-16] MEDS: PIPERACILLIN-TAZOBACTAM 3.375 GM in SODIUM CHLORIDE 0.9% 100 ML IVPB SCH (10:10)
[2023-10-16] MEDS: PROPOFOL 10 MG/ML 20 ML VIAL IV ONE ×2 (10:21→11:55)
[2023-10-16] MEDS: propofoL 100 ML IV ONE (10:37)
[2023-10-16 10:54] LABS: Glucose,Whole Blood 189 mg/dL (70-110)
[2023-10-16 11:52] VITALS: TEMP 99
--- NOTE | 2023-10-16 11:54 | P.CNPUL ---
History of Present Illness Consult date: 10/16/23 Requesting physician: Hayes Alex Reason for consult: other (Cardiac arrest, respiratory failure) Chief complaint: Cardiac arrest History of present illness: This is a 72-year-old white male known history of coronary artery disease and previous CABG back in 2008. 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 Prior to that the patient was going to the bathroom frequently and she was assisting him to go to the bathroom many times. At 5:15 AM, patient was noted to be pulseless by his girlfriend. She started CPR, and the fire department arrived to the scene and began CPR. Patient was shocked twice, apparently his initial rhythm was V. tach rhythm and he received 3 epinephrines, patient was shocked a total of 3 times, CPR continued for about 30 minutes. There was a return of the continuous circulation. In the meantime the patient was intubated in the field, and right humerus intraosseous access was established. Patient was brought into the ER, he received ketamine in the ER because he was not synchronous with the ventilator, workup included a chest x-ray, showing mostly right upper lobe and left lower lobe infiltrate, suspect aspiration. Brain CT was also done and it showed poor differentiation of the greatwhite matter suggesting early anoxic brain injury. EKG showed sinus rhythm with left anterior fascicular block. None specific ST and T wave changes noted ABG showed a pO2 of 85 pCO2 61 pH of 7.26 hence his FiO2 was kept at 100%, rate was increased from 20-24, kept him on the same tidal volume of 500, and PEEP was kep t at 5. Plasma lactic acid was 3.5 and his troponin was 2.35, screening for influenza, RSV and COVID negative. I saw the patient in the ER, discussed his condition with his son at bedside, and the son seems to be quite aware of the poor prognostic picture considering his prolonged downtime, and the major concern is anoxic brain injury. Hence the son is inclined to consider comfort care measures, in the meantime CODE STATUS was changed to DNR CODE STATUS I will make arrangements FOR the patient to the ICU, family may consider comfort care measures later on today Review of Systems ROS unobtainable: due to endotracheal tube Past Medical History Past Medical History: Coronary Artery Disease (CAD), Hyperlipidemia, Hypertension, Osteoarthritis (OA), Vascular Disorder Additional Past Medical History / Comment(s): PAD, See Cardiology H & P. 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 heart cath with stents (2019) , right leg stent (2018)., 09/08/22 balloon angioplasty with right pap artery stent / atherectomy. Past Anesthesia/Blood Transfusion Reactions: No Reported Reaction Date of Last Stent Placement:: 03/29/18 Past Psychological History: Anxiety, Depression Smoking Status: Former smoker Past Alcohol Use History: None Reported Additional Past Alcohol Use History / Comment(s): Quit smoking 36 years ago. Past Drug Use History: None Reported - Past Family History Mother Family Medical History: Cancer Father Family Medical History: Coronary Artery Disease (CAD) Additional Family Medical History / Comment(s): Father at age 62 from complications from alcohol with history of coronary artery disease. Medications and Allergies Home Medications Medication Instructions Recorded Confirmed Type Aspirin [Adult Low Dose Aspirin EC] 81 mg PO DAILY #30 tablet. 03/30/18 10/16/23 Rx Clopidogrel [Plavix] 75 mg PO DAILY 02/28/19 10/16/23 History FLUoxetine HCL [PROzac] 20 mg PO DAILY 02/28/19 10/16/23 History hydroCHLOROthiazide 25 mg PO DAILY 08/12/22 10/16/23 History Evolocumab [Repatha Syringe] 140 mg SQ Q14D 08/17/22 10/16/23 History Atorvastatin [Lipitor] 80 mg PO DAILY 09/23/22 10/16/23 History atenoloL [Tenormin] 50 mg PO DAILY 09/23/22 10/16/23 History Clotrimazole/Betameth Cream 1 applic TOPICAL BID 10/16/23 10/16/23 History [Lotrisone] FLUoxetine HCL [PROzac] 40 mg PO DAILY 10/16/23 10/16/23 History Furosemide [Lasix] 40 mg PO DAILY 10/16/23 10/16/23 History Potassium Chloride ER [K-Dur 20] 20 meq PO DAILY 10/16/23 10/16/23 History amLODIPine [Norvasc] 10 mg PO DAILY 10/16/23 10/16/23 History Allergies Allergy/AdvReac Type Severity Reaction Status Date / Time Iodinated Contrast Media AdvReac Swelling Verified 09/23/22 11:59 [Iodinated Contrast- Oral and IV Dye] Physical Exam Vitals: Vital Signs Temp Pulse Resp BP Pulse Ox FiO2 10/16/23 11:20 64 29 H 134/65 94 L 100 10/16/23 11:10 66 29 H 139/62 94 L 100 10/16/23 11:00 99.0 F 67 33 H 121/63 94 L 100 10/16/23 10:51 68 26 H 95 100 10/16/23 10:11 71 22 152/72 92 L 10/16/23 09:01 69 22 152/55 68 L 10/16/23 08:24 100 10/16/23 08:08 98.8 F 72 18 155/67 89 L 10/16/23 07:15 20 10/16/23 07:10 75 18 142/66 92 L 10/16/23 06:57 100 10/16/23 06:40 97.1 F L 62 20 109/95 93 L 10/16/23 06:30 100 Intake and Output 10/15/23 10/16/23 10/16/23 22:59 06:59 14:59 Intake Total 2420.253 Output Total 45 Balance 2375.253 Intake: IV 2330 Piperacillin-Tazobactam 3 100 .375 gm In Sodium Chloride 0.9% 100 ml @ 25 mls/hr IVPB Q8HR MATTHEW Rx# :[id number] Potassium Chloride 20 meq 100 In Water For Injection 1 100ml.bag @ 50 mls/hr IVPB ONCE STA Rx#: [id number] Sodium Chloride 0.9% 1, 130 000 ml @ 130 mls/hr IV . Q7H42M STA Rx#:[id number] Sodium Chloride 0.9% 1, 1000 000 ml @ 999 mls/hr IV . Q1H1M STA Rx#:[id number] Sodium Chloride 0.9% 1, 1000 000 ml @ 999 mls/hr IV . Q1H1M STA Rx#:[id number] Intake, IV Titration 90.253 Amount propofoL 1,000 mg In 67.392 Empty Bag 1 bag @ 15 MCG/ KG/MIN 8.573 mls/hr IV . [id number] MATTHEW Rx#:[id number] propofoL 1,000 mg In 22.861 Empty Bag 1 bag @ 75 MCG/ KG/MIN 42.864 mls/hr IV . Q2H20M MATTHEW Rx#:[id number] Output: Urine 45 Other: # Bowel Movements 0 Weight 95.254 kg General: Reveals a 72-year-old white male, intubated, mechanically ventilated, unresponsive to any stimuli, noted to have mostly intermittent episodes of myoclonus and tremors Head exam: Atraumatic, normocephalic endotracheal tube is intact. Pupils: Dilated and fixed. Respiratory exam: Symmetrical chest expansion, good breath sound bilaterally no rhonchi no wheezes Cardiovascular Exam: Distant S1-S2, no S3 gallop, no murmur. GI/Abdominal exam: Obese, soft, nontender, no megaly no rebound no guarding. Extremities exam: No clubbing edema or cyanosis Neurological exam: Patient is unresponsive to any stimuli pupils are dilated and fixed Skin: No rashes Results - Laboratory Findings CBC and BMP: 10/16/23 06:43 10/16/23 06:43 ABG ABG pH 7.26 (7.35-7.45) L 10/16/23 07:34 ABG pCO2 61 mmHg (35-45) H 10/16/23 07:34 ABG pO2 85 mmHg (83-108) 10/16/23 07:34 ABG O2 Saturation 93.2 % (94-97) L 10/16/23 07:34 PT/INR, D-dimer PT 13.1 sec (10.0-12.5) H 10/16/23 06:43 INR 1.2 (<1.2) H 10/16/23 06:43 Abnormal lab findings: Abnormal Labs 10/16/23 10/16/23 10/16/23 06:38 06:43 06:43 WBC 16.1 H RBC 3.70 L Hgb 11.1 L Hct 35.6 L Neutrophils # 14.0 H PT 13.1 H INR 1.2 H ABG pH ABG pCO2 ABG HCO3 ABG Total CO2 ABG O2 Saturation Sodium Potassium Glucose POC Glucose (mg/dL) 198 H Plasma Lactic Acid Obed Calcium AST Alkaline Phosphatase Troponin I Total Protein Albumin Ur Leukocyte Esterase Urine WBC Urine WBC Clumps Urine Bacteria Hyaline Casts Urine Mucus 10/16/23 10/16/23 10/16/23 06:43 06:43 06:43 WBC RBC Hgb Hct Neutrophils # PT INR ABG pH ABG pCO2 ABG HCO3 ABG Total CO2 ABG O2 Saturation Sodium 134 L Potassium 2.9 L Glucose 193 H POC Glucose (mg/dL) Plasma Lactic Acid Obed 7.0 H* Calcium 7.2 L AST 80 H Alkaline Phosphatase 333 H Troponin I 0.116 H* Total Protein 5.5 L Albumin 2.6 L Ur Leukocyte Esterase Urine WBC Urine WBC Clumps Urine Bacteria Hyaline Casts Urine Mucus 10/16/23 10/16/23 10/16/23 06:54 07:34 09:46 WBC RBC Hgb Hct Neutrophils # PT INR ABG pH 7.26 L ABG pCO2 61 H ABG HCO3 27 H ABG Total CO2 29 H ABG O2 Saturation 93.2 L Sodium Potassium Glucose POC Glucose (mg/dL) Plasma Lactic Acid Obed 3.5 H* Calcium AST Alkaline Phosphatase Troponin I Total Protein Albumin Ur Leukocyte Esterase Moderate H Urine WBC 42 H Urine WBC Clumps Rare H Urine Bacteria Rare H Hyaline Casts 3 H Urine Mucus Rare H 10/16/23 10/16/23 09:46 10:51 WBC RBC Hgb Hct Neutrophils # PT INR ABG pH ABG pCO2 ABG HCO3 ABG Total CO2 ABG O2 Saturation Sodium Potassium Glucose POC Glucose (mg/dL) 189 H Plasma Lactic Acid Obed Calcium AST Alkaline Phosphatase Troponin I 2.350 H* Total Protein Albumin Ur Leukocyte Esterase Urine WBC Urine WBC Clumps Urine Bacteria Hyaline Casts Urine Mucus - Diagnostic Findings Chest x-ray: image reviewed (As noted in HPI) Additional studies: CT brain: As noted in HPI suggestive of anoxic brain injury Assessment and Plan Assessment: Impression: Acute hypoxic respiratory failure secondary to cardiac arrest Cardiac arrest/V. tach cardiac arrest Suspect aspiration pneumonia Suspect severe anoxic brain injury History of underlying coronary artery disease and previous CABG History of benign essential hypertension Degenerative joint disease Recommendation: Continue ventilatory support, vent settings were adjusted accordingly Transfer patient to ICU Empiric antibiotics in the form of Zosyn GI and DVT prophylaxis Family seems to be inclined to consider comfort care measures in the meantime CODE STATUS was changed to DNR CODE STATUS. Overall prognosis is extremely poor Will continue to follow and make recommendations accordingly Time with Patient: Greater than 30
[2023-10-16] MEDS: ASPIRIN 81 MG PO STA (12:24)
[2023-10-16] MEDS: PANTOPRAZOLE 40 MG/10 ML VIAL IVP SCH (12:24)
[2023-10-16 13:41] VITALS: BP 127/60
[2023-10-16] MEDS ORDERED: MORPHINE SULFATE 2 MG/ML SYRINGE IV PRN (13:44)
[2023-10-16] MEDS: SCOPOLAMINE 1 MG/72 HR PATCH TRANSDERM SCH (14:10)
[2023-10-16] MEDS: ATROPINE OPHTH SOLN 1% 5ML BTL SUBLINGUAL PRN (14:10)
[2023-10-16] MEDS: MORPHINE SULFATE 4 MG/ML SYRINGE IVP ONE (14:12)
[2023-10-16] MEDS: LORazepam 2 MG/ML INJ IV PRN (14:13)
[2023-10-16] MEDS: MORPHINE SULFATE (100 MG/2 ML) 100 MG in SODIUM CHLORIDE 0.9% 100 ML IV SCH (14:16)
[2023-10-16] MEDS: MORPHINE SULFATE 4 MG/ML SYRINGE IV PRN (14:59)
[2023-10-16] MEDS: AMIODARONE 450 MG in DEXTROSE 5% IN WATER 250 ML IV SCH (15:02)
--- NOTE | 2023-10-16 15:05 | XR ---
EXAMINATION TYPE: XR chest 1V confirm line [facility] DATE OF EXAM: 10/16/2023 COMPARISON: Earlier exam INDICATION: Line placement TECHNIQUE: Single frontal view of the chest is obtained. FINDINGS: The heart size is stable. The pulmonary vasculature is normal. Right upper and left lower lobe infiltrates remain present. Endotracheal tube tip is 5.4 cm above the silas. There is placement of the nasogastric tube, tip is within the left upper quadrant of the abdomen. IMPRESSION: 1. Right upper and left lower lobe infiltrates. Correlate for pneumonia. 2. Endotracheal tube and nasogastric tube position discussed above
[2023-10-16] MEDS: GLYCOPYRROLATE 0.2 MG/ML 2 ML VIAL IVP PRN (15:23)
[2023-10-16 16:01] VITALS: PULSE 77; RESP 50
--- NOTE | 2023-10-16 16:15 | P.HPIM ---
History of Present Illness H&P Date: 10/16/23 72-year-old male with past medical history of coronary disease status post bypass who presents emergency department as a ROSC patient. It is reported by EMS that the awoke to the patient having agonal respirations. This was at 5:15 AM. She called EMS. Fire arrived on scene and began CPR. They administered 2 shocks to the patient. EMS arrived on scene and found the patient to have a V. tach rhythm for which she was administered a third defibrillation. Patient was administered 3 epinephrine doses. He had a total downtime of 30 minutes. His blood pressure was reported to be low and therefore he was administered a push dose of epinephrine. It was reported that the patient then began bucking the vent so he was given a dose of ketamine. Patient arrives in the normal sinus rhythm. EMS denies that the patient was complaining of anything prior to going to sleep. They did mention that the patient has had some falls. --workup included a chest x-ray, showing mostly right upper lobe and left lower lobe infiltrate, suspect aspiration. Brain CT was also done and it showed poor differentiation of the greatwhite matter suggesting early anoxic brain injury. EKG showed sinus rhythm with left anterior fascicular block. None specific ST and T wave changes noted ABG showed a pO2 of 85 pCO2 61 pH of 7.26; Plasma lactic acid was 3.5 and his troponin was 2.35, screening for influenza, RSV and COVID negative. Review of Systems REVIEW OF SYSTEMS: CONSTITUTIONAL: No fever, no malaise, no fatigue. HEENT: No recent visual problems or hearing problems. Denied any sore throat. CARDIOVASCULAR: No chest pain, orthopnea, PND, no palpitations, no syncope. PULMONARY: No shortness of breath, no cough, no hemoptysis. GASTROINTESTINAL: No diarrhea, no nausea, no vomiting, no abdominal pain. NEUROLOGICAL: No headaches, no weakness, no numbness. HEMATOLOGICAL: Denies any bleeding or petechiae. GENITOURINARY: Denies any burning micturition, frequency, or urgency. MUSCULOSKELETAL/RHEUMATOLOGICAL: Denies any joint pain, swelling, or any muscle pain. ENDOCRINE: Denies any polyuria or polydipsia. The rest of the 14-point review of systems is negative. Past Medical History Past Medical History: Coronary Artery Disease (CAD), Hyperlipidemia, Hypertension, Osteoarthritis (OA), Vascular Disorder Additional Past Medical History / Comment(s): PAD, See Cardiology H & P. 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 heart cath with stents (2019) , right leg stent (2018)., 09/08/22 balloon angioplasty with right pap artery stent / atherectomy. Past Anesthesia/Blood Transfusion Reactions: No Reported Reaction Date of Last Stent Placement:: 03/29/18 Past Psychological History: Anxiety, Depression Smoking Status: Former smoker Past Alcohol Use History: None Reported Additional Past Alcohol Use History / Comment(s): Quit smoking 36 years ago. Past Drug Use History: None Reported - Past Family History Mother Family Medical History: Cancer Father Family Medical History: Coronary Artery Disease (CAD) Additional Family Medical History / Comment(s): Father at age 62 from complications from alcohol with history of coronary artery disease. Medications and Allergies Home Medications Medication Instructions Recorded Confirmed Type Aspirin [Adult Low Dose Aspirin EC] 81 mg PO DAILY #30 tablet. 03/30/18 10/16/23 Rx Clopidogrel [Plavix] 75 mg PO DAILY 02/28/19 10/16/23 History FLUoxetine HCL [PROzac] 20 mg PO DAILY 02/28/19 10/16/23 History hydroCHLOROthiazide 25 mg PO DAILY 08/12/22 10/16/23 History Evolocumab [Repatha Syringe] 140 mg SQ Q14D 08/17/22 10/16/23 History Atorvastatin [Lipitor] 80 mg PO DAILY 09/23/22 10/16/23 History atenoloL [Tenormin] 50 mg PO DAILY 09/23/22 10/16/23 History Clotrimazole/Betameth Cream 1 applic TOPICAL BID 10/16/23 10/16/23 History [Lotrisone] FLUoxetine HCL [PROzac] 40 mg PO DAILY 10/16/23 10/16/23 History Furosemide [Lasix] 40 mg PO DAILY 10/16/23 10/16/23 History Potassium Chloride ER [K-Dur 20] 20 meq PO DAILY 10/16/23 10/16/23 History amLODIPine [Norvasc] 10 mg PO DAILY 10/16/23 10/16/23 History Allergies Allergy/AdvReac Type Severity Reaction Status Date / Time Iodinated Contrast Media AdvReac Swelling Verified 09/23/22 11:59 [Iodinated Contrast- Oral and IV Dye] Physical Exam Vitals: Vital Signs Temp Pulse Resp BP Pulse Ox FiO2 10/16/23 10:11 71 22 152/72 92 L 10/16/23 09:01 69 22 152/55 68 L 10/16/23 08:24 100 10/16/23 08:08 98.8 F 72 18 155/67 89 L 10/16/23 07:15 20 10/16/23 07:10 75 18 142/66 92 L 10/16/23 06:57 100 10/16/23 06:40 97.1 F L 62 20 109/95 93 L 10/16/23 06:30 100 Intake and Output 10/15/23 10/16/23 10/16/23 22:59 06:59 14:59 Intake Total 67.392 Balance 67.392 Intake: Intake, IV Titration 67.392 Amount propofoL 1,000 mg In 67.392 Empty Bag 1 bag @ 15 MCG/ KG/MIN 8.573 mls/hr IV . [id number] [facility] Rx#:[id number] Other: Weight 95.254 kg Limitations: altered mental status, physical limitation Head exam: Present: atraumatic, normocephalic, normal inspection Pupils: Present: other (Pupils are 5 mm and fixed) Respiratory exam: Present: other (Patient vented) Cardiovascular Exam: Present: normal rhythm, bradycardia GI/Abdominal exam: Present: soft, normal bowel sounds. Absent: distended, tenderness, guarding, rebound, rigid Extremities exam: Present: normal inspection, full ROM, normal capillary refill. Absent: tenderness, pedal edema, joint swelling, calf tenderness Neurological exam: Present: altered Results CBC & Chem 7: 10/16/23 06:43 10/16/23 06:43 Labs: Abnormal Lab Results - Last 24 Hours (Table) 10/16/23 10/16/23 10/16/23 Range/Units 06:38 06:43 06:43 WBC 16.1 H (3.8-10.6) k/uL RBC 3.70 L (4.30-5.90) m/uL Hgb 11.1 L (13.0-17.5) gm/dL Hct 35.6 L (39.0-53.0) % Neutrophils # 14.0 H (1.3-7.7) k/uL PT 13.1 H (10.0-12.5) sec INR 1.2 H (<1.2) ABG pH (7.35-7.45) ABG pCO2 (35-45) mmHg ABG HCO3 (21-25) mmol/L ABG Total CO2 (19-24) mmol/L ABG O2 Saturation (94-97) % Sodium (137-145) mmol/L Potassium (3.5-5.1) mmol/L Glucose (74-99) mg/dL POC Glucose (mg/dL) 198 H (70-110) mg/dL Plasma Lactic Acid Obed (0.7-2.0) mmol/L Calcium (8.4-10.2) mg/dL AST (17-59) U/L Alkaline Phosphatase (38-126) U/L Troponin I (0.000-0.034) ng/mL Total Protein (6.3-8.2) g/dL Albumin (3.5-5.0) g/dL Ur Leukocyte Esterase (Negative) Urine WBC (0-5) /hpf Urine WBC Clumps (None) /hpf Urine Bacteria (None) /hpf Hyaline Casts (0-2) /lpf Urine Mucus (None) /hpf 10/16/23 10/16/23 10/16/23 Range/Units 06:43 06:43 06:43 WBC (3.8-10.6) k/uL RBC (4.30-5.90) m/uL Hgb (13.0-17.5) gm/dL Hct (39.0-53.0) % Neutrophils # (1.3-7.7) k/uL PT (10.0-12.5) sec INR (<1.2) ABG pH (7.35-7.45) ABG pCO2 (35-45) mmHg ABG HCO3 (21-25) mmol/L ABG Total CO2 (19-24) mmol/L ABG O2 Saturation (94-97) % Sodium 134 L (137-145) mmol/L Potassium 2.9 L (3.5-5.1) mmol/L Glucose 193 H (74-99) mg/dL POC Glucose (mg/dL) (70-110) mg/dL Plasma Lactic Acid Obed 7.0 H* (0.7-2.0) mmol/L Calcium 7.2 L (8.4-10.2) mg/dL AST 80 H (17-59) U/L Alkaline Phosphatase 333 H (38-126) U/L Troponin I 0.116 H* (0.000-0.034) ng/mL Total Protein 5.5 L (6.3-8.2) g/dL Albumin 2.6 L (3.5-5.0) g/dL Ur Leukocyte Esterase (Negative) Urine WBC (0-5) /hpf Urine WBC Clumps (None) /hpf Urine Bacteria (None) /hpf Hyaline Casts (0-2) /lpf Urine Mucus (None) /hpf 10/16/23 10/16/23 10/16/23 Range/Units 06:54 07:34 09:46 WBC (3.8-10.6) k/uL RBC (4.30-5.90) m/uL Hgb (13.0-17.5) gm/dL Hct (39.0-53.0) % Neutrophils # (1.3-7.7) k/uL PT (10.0-12.5) sec INR (<1.2) ABG pH 7.26 L (7.35-7.45) ABG pCO2 61 H (35-45) mmHg ABG HCO3 27 H (21-25) mmol/L ABG Total CO2 29 H (19-24) mmol/L ABG O2 Saturation 93.2 L (94-97) % Sodium (137-145) mmol/L Potassium (3.5-5.1) mmol/L Glucose (74-99) mg/dL POC Glucose (mg/dL) (70-110) mg/dL Plasma Lactic Acid Obed 3.5 H* (0.7-2.0) mmol/L Calcium (8.4-10.2) mg/dL AST (17-59) U/L Alkaline Phosphatase (38-126) U/L Troponin I (0.000-0.034) ng/mL Total Protein (6.3-8.2) g/dL Albumin (3.5-5.0) g/dL Ur Leukocyte Esterase Moderate H (Negative) Urine WBC 42 H (0-5) /hpf Urine WBC Clumps Rare H (None) /hpf Urine Bacteria Rare H (None) /hpf Hyaline Casts 3 H (0-2) /lpf Urine Mucus Rare H (None) /hpf Assessment and Plan Assessment: 1. Acute hypoxic respiratory failure related to cardiac arrest -- Patient remains intubated and mechanically ventilated; intensive care team on board -- ABG showed a pO2 of 85 pCO2 61 pH of 7.26 hence his FiO2 was kept at 100%, rate was increased from 20-24, kept him on the same tidal volume of 500, and PEEP was kept at 5. 2. V. tach cardiac arrest --EMS found the patient to have a V. tach rhythm for which she was administered a third defibrillation. Patient was administered 3 epinephrine doses. He had a total downtime of 30 minutes. His blood pressure was reported to be low and therefore he was administered a push dose of epinephrine. EKG showed sinus rhythm with left anterior fascicular block. None specific ST and T wave changes -Cardiology to see patient 3. Suspected anoxic brain injury -- Brain CT was also done and it showed poor differentiation of the greatwhite matter suggesting early anoxic brain injury. Neurology consulted 4. Possible aspiration pneumonia; chest x-ray, showing mostly right upper lobe and left lower lobe infiltrate, suspect aspiration. -- Patient has been placed on empiric IV antibiotics in form of Zosyn 5. Hypertension 6. History of coronary artery disease with previous CABG
[2023-10-17] MEDS ORDERED: ASPIRIN 325 MG TAB PO SCH (09:00)
== END 2023-10-16 22:18 | disposition expired | DRG 871 ==
LOC: EC 06:37 → 2SICU 09:36
PROVIDERS: ADMIT Internal Medicine; ATTEND Internal Medicine
PROC: 5A1935Z Respiratory Ventilation, Less than 24 Consecutive Hours (ICD-10-PCS; principal; 2023-10-16)
PROC: 5A12012 Performance of Cardiac Output, Single, Manual (ICD-10-PCS; principal; 2023-10-16)
PROC: 0D9670Z Drainage of Stomach with Drainage Device, Via Natural or Artificial Opening (ICD-10-PCS; 2023-10-16)
DX: A41.9 Sepsis, unspecified organism (principal); J69.0 Pneumonitis due to inhalation of food and vomit; J96.01 Acute respiratory failure with hypoxia; G93.1 Anoxic brain damage, not elsewhere classified; I47.20 Ventricular tachycardia, unspecified; E78.5 Hyperlipidemia, unspecified; I25.10 Atherosclerotic heart disease of native coronary artery without angina pectoris; M19.90 Unspecified osteoarthritis, unspecified site; F32.A Depression, unspecified; F41.9 Anxiety disorder, unspecified; I10 Essential (primary) hypertension; I44.4 Left anterior fascicular block; Z51.5 Encounter for palliative care; Z66 Do not resuscitate; I46.9 Cardiac arrest, cause unspecified; Z95.1 Presence of aortocoronary bypass graft; Z79.02 Long term (current) use of antithrombotics/antiplatelets; Z79.82 Long term (current) use of aspirin; Z79.899 Other long term (current) drug therapy; Z87.19 Personal history of other diseases of the digestive system; Z82.49 Family history of ischemic heart disease and other diseases of the circulatory system
CPT/HCPCS: 36415; 36600; 70450; 71045; 80053; 81001; 82805; 83605; 83735; 83880; 84484; 85025; 85610; 85730; 87040; 87070; 87205; 87636; 93005; 94002; 96361; 96365; 96366; 96368; 96375; 99291